=== PATIENT | male | born 1985 | race Caucasian/White ===

== ENCOUNTER 2017-08-05 11:41 | Inpatient (IN) | payer OTHER ==
[2017-08-05] MEDS: SOD CHLORIDE 0.9% 500 ML IV (12:59)
[2017-08-05] MEDS: morphine 2 MG INJ IV ×3 (12:59→21:31)
[2017-08-05] MEDS: PANTOPRAZOLE 40 MG INJ IV (12:59)
[2017-08-05 13:05] LABS: WHITE BLOOD COUNT 42.7 10^3/ul (4.8-10.8)
[2017-08-05 13:05] LABS: ABNORMAL IP MESSAGE 1; HEMATOCRIT 25.7 % (42.0-52.0); HEMOGLOBIN 8.9 g/dl (14.0-18.0); MEAN CORPUSCULAR HEMOGLOBIN 33.8 pg (29.0-33.0); MEAN CORPUSCULAR HGB CONC 34.6 g/dl (32.0-37.0); MEAN CORPUSCULAR VOLUME 97.7 fl (82.0-101.0); MEAN PLATELET VOLUME 10.9 fl (7.4-10.4); PLATELET COUNT 185 10^3/UL (140-415); POSITIVE DIFF @See below; RED BLOOD COUNT 2.63 10^6/ul (4.70-6.10); RED CELL DISTRIBUTION WIDTH 18.5 % (11.5-14.5)
[2017-08-05 13:07] LABS: ADD MAN DIFF? YES
[2017-08-05] MEDS: DEXTROSE 5% IVPB (13:22)
[2017-08-05] MEDS: ONDANSETRON 4 MG INJ IV (13:22)
[2017-08-05] MEDS: OCTREOTIDE IVPB (13:22)
[2017-08-05 13:33] LABS: INR 1.57; PROTIME 19.1 Sec (11.9-14.9); PT RATIO 1.5
[2017-08-05 13:34] LABS: PARTIAL THROMBOPLASTIN TIME 48.3 Sec (25.0-35.0)
[2017-08-05 13:36] LABS: ALANINE AMINOTRANSFERASE 48 IU/L (13-69); ALBUMIN 2.4 g/dl (3.3-4.9); ALBUMIN/GLOBULIN RATIO 0.68; ALKALINE PHOSPHATASE 350 IU/L (42-121); ANION GAP 13 (8-16); ASPARTATE AMINO TRANSFERASE 48 IU/L (15-46); BILIRUBIN,INDIRECT 2.7 mg/dl (0-1.1); BILIRUBIN,TOTAL 14.4 mg/dl (0.2-1.3); BLOOD UREA NITROGEN 8 mg/dl (7-20); CARBON DIOXIDE 16 mmol/L (21-31); CHLORIDE 100 mmol/L (97-110); GLUCOSE 99 mg/dl (70-220); LIPASE 124 U/L (23-300); POTASSIUM 3.4 mmol/L (3.5-5.1); SODIUM 126 mmol/L (135-144); TOTAL PROTEIN 5.9 g/dl (6.1-8.1)
[2017-08-05 13:38] LABS: AMMONIA 56 umol/l (9-30)
[2017-08-05 13:51] LABS: TROPONIN-I < 0.012 ng/ml (0.00-0.12)
[2017-08-05] MEDS: LACTULOSE 30ML CUP PO ×2 (15:08→20:56)
[2017-08-05] MEDS ORDERED: DOCUSATE SODIUM 100 MG CAP PO (15:30)
[2017-08-05] MEDS ORDERED: LORAZEPAM 2 MG INJ IV (15:30)
[2017-08-05] MEDS ORDERED: NITROGLYCERIN (SL) 0.4 MG TAB SL (15:30)
[2017-08-05] MEDS ORDERED: NA PHOSPHATE/BIPHOS 133 ML ENEMA PR (15:30)
[2017-08-05] MEDS ORDERED: hydrALAzine 20 MG INJ IV (15:30)
[2017-08-05] MEDS ORDERED: ACETAMINOPHEN 325 MG TAB PO (15:30)
[2017-08-05] MEDS ORDERED: NACL 0.9% 3 ML SYG IV (15:30)
[2017-08-05] MEDS ORDERED: ALBUTEROL/IPRATROPIUM (NEB) 3 ML AMP HHN (15:30)
[2017-08-05] MEDS: HYDROCODONE/APAP (5/325) TAB PO ×2 (15:48→22:48)
[2017-08-05] MEDS: OCTREOTIDE 1 MG in DEXTROSE 5% 95 ML IV (16:17)
[2017-08-05] MEDS: PANTOPRAZOLE IV 80 MG in SOD CHLORIDE 0.9% 100 ML IV (16:17)
[2017-08-05 16:53] LABS: INR 1.69; PROTIME 20.2 Sec (11.9-14.9); PT RATIO 1.6
[2017-08-05 16:54] LABS: PARTIAL THROMBOPLASTIN TIME 50.2 Sec (25.0-35.0)
[2017-08-05 16:55] LABS: ADD UMIC YES; UR ASCORBIC ACID 40 mg/dL (NEGATIVE); UR BACTERIA FEW /HPF (NONE SEEN); UR BILIRUBIN (Dip) 2+ mg/dL (NEGATIVE); UR BLOOD (Dip) 2+ mg/dL (NEGATIVE); UR CLARITY CLEAR (CLEAR); UR COLOR AMBER (YELLOW); UR GLUCOSE (Dip) NEGATIVE (NEGATIVE); UR KETONES (Dip) NEGATIVE (NEGATIVE); UR LEUKOCYTE ESTERASE (Dip) NEGATIVE Leu/ul (NEGATIVE); UR MUCUS MANY /HPF (NONE SEEN); UR NITRITE (Dip) NEGATIVE (NEGATIVE); UR RBC 0 /HPF (0-5); UR SQUAMOUS EPITHELIAL CELL FEW /HPF (FEW); UR TOTAL PROTEIN (Dip) 1+ mg/dl (NEGATIVE); UR UROBILINOGEN (Dip) 2+ mg/dL (NEGATIVE); UR WBC 2 /HPF (0-5)
[2017-08-05] MEDS ORDERED: LACTULOSE 30ML CUP PO (18:00)
[2017-08-05] MEDS: SOD CHLORIDE 0.45% 1,000 ML IV (19:55)
[2017-08-06] MEDS: PANTOPRAZOLE IV 80 MG in SOD CHLORIDE 0.9% 100 ML IV ×2 (02:53→11:27)
[2017-08-06] MEDS: morphine 2 MG INJ IV ×3 (03:18→17:53)
[2017-08-06] MEDS: SOD CHLORIDE 0.45% 1,000 ML IV ×2 (04:44→10:17)
[2017-08-06] MEDS: FUROSEMIDE 20 MG TAB PO (09:00)
[2017-08-06 09:40] LABS: FREE T4 (FREE THYROXINE) 1.67 ng/dl (0.79-2.35)
[2017-08-06 09:46] LABS: WHITE BLOOD COUNT 37.7 10^3/ul (4.8-10.8)
[2017-08-06 09:46] LABS: ABNORMAL IP MESSAGE 1; HEMATOCRIT 26.2 % (42.0-52.0); HEMOGLOBIN 8.7 g/dl (14.0-18.0); MEAN CORPUSCULAR HEMOGLOBIN 33.6 pg (29.0-33.0); MEAN CORPUSCULAR HGB CONC 33.2 g/dl (32.0-37.0); MEAN CORPUSCULAR VOLUME 101.2 fl (82.0-101.0); MEAN PLATELET VOLUME 10.9 fl (7.4-10.4); PLATELET COUNT 179 10^3/UL (140-415); POSITIVE DIFF @See below; RED BLOOD COUNT 2.59 10^6/ul (4.70-6.10); RED CELL DISTRIBUTION WIDTH 18.2 % (11.5-14.5)
[2017-08-06] MEDS: LACTULOSE 30ML CUP PO ×3 (09:49→20:51)
[2017-08-06 09:52] LABS: ADD MAN DIFF? YES
[2017-08-06 10:06] LABS: HEMOGLOBIN A1C 4.3 % (0-5.9)
[2017-08-06 10:13] LABS: AMMONIA 120 umol/l (9-30)
[2017-08-06 10:30] LABS: ANION GAP 15 (8-16); BLOOD UREA NITROGEN 8 mg/dl (7-20); CALCIUM 7.9 mg/dl (8.4-10.2); CARBON DIOXIDE 14 mmol/L (21-31); CHLORIDE 103 mmol/L (97-110); CREATININE 0.57 mg/dl (0.61-1.24); GLUCOSE 112 mg/dl (70-220); MAGNESIUM 1.8 mg/dl (1.7-2.5); PHOSPHORUS 3.1 mg/dl (2.5-4.9); POTASSIUM 3.6 mmol/L (3.5-5.1); SODIUM 128 mmol/L (135-144)
[2017-08-06 10:35] LABS: ANISOCYTOSIS 2+ (0-0); BAND NEUTROPHILS #M 5.9 10^3/ul (0.0-0.6); BAND NEUTROPHILS % (M) 14 % (0-4); BURR CELLS 3+ (0-0); EOSINOPHILS % (M) 2 % (0-7); LYMPHOCYTES #M 2.9 10^3/ul (0.8-2.9); LYMPHOCYTES % (M) 7 % (15-51); METAMYELOCYTES #M 0.4 10^3/ul (0.0-0.0); METAMYELOCYTES %M 1 % (0-0); MONOCYTE #M 1.2 10^3/ul (0.3-0.9); MONOCYTES % (M) 3 % (0-11); PLATELET ESTIMATE NORMAL; POIKILOCYTOSIS 3+ (0-0); POLYCHROMASIA 1+ (0-0); SEG NEUT #M 33.7 10^3/ul (1.7-7.5); SEGMENTED NEUTROPHILS (M) % 73 % (39-77)
[2017-08-06 10:40] LABS: CHOL/HDL RATIO 6.3 RATIO; HDL CHOLESTEROL 25 mg/dl (28-63); LDL CHOLESTEROL,CALCULATED 92 mg/dl; TRIGLYCERIDES 207 mg/dl (0-149)
[2017-08-06 10:40] LABS: CHOLESTEROL 158 mg/dl (100-200)
[2017-08-06 11:00] LABS: ANISOCYTOSIS 2+ (0-0); BAND NEUTROPHILS #M 1.5 10^3/ul (0.0-0.6); BAND NEUTROPHILS % (M) 4 % (0-4); BASOPHIL #M 0.3 10^3/ul (0.0-0.0); BASOPHILS % (M) 1 % (0-2); EOSINOPHILS % (M) 5 % (0-7); LYMPHOCYTES #M 3.3 10^3/ul (0.8-2.9); LYMPHOCYTES % (M) 9 % (15-51); METAMYELOCYTES #M 0.3 10^3/ul (0.0-0.0); METAMYELOCYTES %M 1 % (0-0); MONOCYTE #M 0.7 10^3/ul (0.3-0.9); MONOCYTES % (M) 2 % (0-11); MYELOCYTES #M 0.7 10^3/ul (0.0-0.0); MYELOCYTES % (M) 2 % (0-0); PLATELET ESTIMATE NORMAL; POIKILOCYTOSIS 3+ (0-0); POLYCHROMASIA 3+ (0-0); SEG NEUT #M 29.6 10^3/ul (1.7-7.5); SEGMENTED NEUTROPHILS (M) % 77 % (39-77); SMUDGE%M 1 % (0-0)
[2017-08-06 11:10] LABS: THYROID STIMULATING HORMONE 0.299 MIU/L (0.465-4.680)
[2017-08-06] MEDS: OCTREOTIDE 1 MG in DEXTROSE 5% 95 ML IV (11:27)
[2017-08-06] MEDS: HYDROCODONE/APAP (5/325) TAB PO (12:56)
[2017-08-06] MEDS: PROPOFOL 20 ML (15:44)
[2017-08-06] MEDS: FENTAnyl 50 MCG/ML VIAL (15:44)
[2017-08-06] MEDS: MIDAZOLAM 1 MG/ML 2 ML INJ (15:44)
[2017-08-06] MEDS ORDERED: EPHEDrine SULFATE 50 MG/5 ML SYG (16:21)
[2017-08-06] MEDS: FLUCONAZOLE 100 MG TAB PO (17:52)
[2017-08-06] MEDS: CHLORDIAZEPOXIDE 25 MG CAP PO (21:35)
[2017-08-07] MEDS: morphine 2 MG INJ IV ×3 (00:36→17:43)
[2017-08-07] MEDS: PANTOPRAZOLE IV 80 MG in SOD CHLORIDE 0.9% 100 ML IV ×3 (00:48→15:43)
[2017-08-07] MEDS: SOD CHLORIDE 0.45% 1,000 ML IV ×3 (04:37→21:17)
[2017-08-07 08:48] LABS: WHITE BLOOD COUNT 29.1 10^3/ul (4.8-10.8)
[2017-08-07 08:48] LABS: ABNORMAL IP MESSAGE 1; HEMATOCRIT 23.8 % (42.0-52.0); HEMOGLOBIN 7.9 g/dl (14.0-18.0); MEAN CORPUSCULAR HEMOGLOBIN 33.5 pg (29.0-33.0); MEAN CORPUSCULAR HGB CONC 33.2 g/dl (32.0-37.0); MEAN CORPUSCULAR VOLUME 100.8 fl (82.0-101.0); MEAN PLATELET VOLUME 10.5 fl (7.4-10.4); PLATELET COUNT 153 10^3/UL (140-415); POSITIVE DIFF @See below; RED BLOOD COUNT 2.36 10^6/ul (4.70-6.10); RED CELL DISTRIBUTION WIDTH 18.2 % (11.5-14.5)
[2017-08-07 08:53] LABS: ADD MAN DIFF? YES
[2017-08-07 09:13] LABS: ANION GAP 12 (8-16); BLOOD UREA NITROGEN 7 mg/dl (7-20); CALCIUM 7.9 mg/dl (8.4-10.2); CARBON DIOXIDE 13 mmol/L (21-31); CHLORIDE 103 mmol/L (97-110); CREATININE 0.54 mg/dl (0.61-1.24); GLUCOSE 113 mg/dl (70-220); POTASSIUM 3.2 mmol/L (3.5-5.1); SODIUM 125 mmol/L (135-144)
[2017-08-07 09:17] LABS: AMMONIA 92 umol/l (9-30)
[2017-08-07] MEDS: FLUCONAZOLE 100 MG TAB PO (09:59)
[2017-08-07] MEDS: CHLORDIAZEPOXIDE 25 MG CAP PO ×3 (09:59→21:07)
[2017-08-07] MEDS: LACTULOSE 30ML CUP PO ×4 (10:00→21:07)
[2017-08-07] MEDS: FUROSEMIDE 20 MG TAB PO (10:01)
[2017-08-07 10:42] LABS: ANISOCYTOSIS 2+ (0-0); BAND NEUTROPHILS #M 0.2 10^3/ul (0.0-0.6); BAND NEUTROPHILS % (M) 1 % (0-4); EOSINOPHILS % (M) 5 % (0-7); LYMPHOCYTES #M 1.4 10^3/ul (0.8-2.9); LYMPHOCYTES % (M) 5 % (15-51); MONOCYTE #M 0.5 10^3/ul (0.3-0.9); MONOCYTES % (M) 2 % (0-11); PLATELET ESTIMATE NORMAL; POIKILOCYTOSIS 3+ (0-0); POLYCHROMASIA 3+ (0-0); SEG NEUT #M 25.4 10^3/ul (1.7-7.5); SEGMENTED NEUTROPHILS (M) % 87 % (39-77); SMUDGE%M 4 % (0-0)
[2017-08-07] MEDS: POTASSIUM CHLORIDE (SR) 20 MEQ TAB PO (13:31)
[2017-08-07] MEDS: RIFAXIMIN 550 MG TAB PO (21:07)
[2017-08-08] MEDS: morphine 2 MG INJ IV ×2 (02:33→18:48)
[2017-08-08] MEDS: PANTOPRAZOLE IV 80 MG in SOD CHLORIDE 0.9% 100 ML IV (02:43)
[2017-08-08 08:46] LABS: WHITE BLOOD COUNT 33.4 10^3/ul (4.8-10.8)
[2017-08-08 08:46] LABS: ABNORMAL IP MESSAGE 1; HEMATOCRIT 24.8 % (42.0-52.0); HEMOGLOBIN 8.4 g/dl (14.0-18.0); MEAN CORPUSCULAR HEMOGLOBIN 33.7 pg (29.0-33.0); MEAN CORPUSCULAR HGB CONC 33.9 g/dl (32.0-37.0); MEAN CORPUSCULAR VOLUME 99.6 fl (82.0-101.0); PLATELET COUNT 171 10^3/UL (140-415); POSITIVE DIFF @See below; RED BLOOD COUNT 2.49 10^6/ul (4.70-6.10); RED CELL DISTRIBUTION WIDTH 18.1 % (11.5-14.5)
[2017-08-08 08:53] LABS: ADD MAN DIFF? YES
[2017-08-08] MEDS: FUROSEMIDE 20 MG TAB PO (09:00)
[2017-08-08 09:09] LABS: ANION GAP 12 (8-16); BLOOD UREA NITROGEN 6 mg/dl (7-20); CALCIUM 7.8 mg/dl (8.4-10.2); CARBON DIOXIDE 14 mmol/L (21-31); CHLORIDE 107 mmol/L (97-110); CREATININE 0.58 mg/dl (0.61-1.24); GLUCOSE 67 mg/dl (70-220); POTASSIUM 3.5 mmol/L (3.5-5.1); SODIUM 129 mmol/L (135-144)
[2017-08-08 09:17] LABS: AMMONIA 91 umol/l (9-30)
[2017-08-08] MEDS: SPIRONOLACTONE 50 MG TAB PO (09:32)
[2017-08-08] MEDS: LACTULOSE 30ML CUP PO ×4 (09:32→21:07)
[2017-08-08] MEDS: FLUCONAZOLE 100 MG TAB PO (09:32)
[2017-08-08] MEDS: CHLORDIAZEPOXIDE 25 MG CAP PO ×3 (09:32→21:07)
[2017-08-08] MEDS: RIFAXIMIN 550 MG TAB PO ×2 (09:32→21:07)
[2017-08-08] MEDS: SOD CHLORIDE 0.45% 1,000 ML IV (09:33)
[2017-08-08 11:13] LABS: ANISOCYTOSIS 2+ (0-0); BAND NEUTROPHILS #M 4.6 10^3/ul (0.0-0.6); BAND NEUTROPHILS % (M) 14 % (0-4); BURR CELLS 2+ (0-0); EOSINOPHILS % (M) 4 % (0-7); LYMPHOCYTES #M 1.6 10^3/ul (0.8-2.9); LYMPHOCYTES % (M) 5 % (15-51); MONOCYTE #M 1.3 10^3/ul (0.3-0.9); MONOCYTES % (M) 4 % (0-11); PLATELET ESTIMATE NORMAL; POIKILOCYTOSIS 2+ (0-0); POLYCHROMASIA 3+ (0-0); REACTIVE LYMPHOCYTES #M 1.6 10^3/ul (0.0-0.0); REACTIVE LYMPHOCYTES% (M) 5 % (0-0); SEG NEUT #M 24.2 10^3/ul (1.7-7.5); SEGMENTED NEUTROPHILS (M) % 68 % (39-77); SMUDGE%M 10 % (0-0)
[2017-08-08] MEDS: PANTOPRAZOLE (EC) 40 MG TAB PO (17:48)
[2017-08-09] MEDS: PANTOPRAZOLE (EC) 40 MG TAB PO ×2 (05:57→18:03)
[2017-08-09] MEDS: morphine 2 MG INJ IV ×3 (06:24→20:23)
[2017-08-09 06:46] LABS: ABNORMAL IP MESSAGE 1; HEMOGLOBIN 7.8 g/dl (14.0-18.0); MEAN CORPUSCULAR HEMOGLOBIN 33.9 pg (29.0-33.0); MEAN CORPUSCULAR HGB CONC 33.9 g/dl (32.0-37.0); MEAN PLATELET VOLUME 10.9 fl (7.4-10.4); PLATELET COUNT 157 10^3/UL (140-415); POSITIVE DIFF @See below; RED CELL DISTRIBUTION WIDTH 18.6 % (11.5-14.5)
[2017-08-09 06:46] LABS: WHITE BLOOD COUNT 30.5 10^3/ul (4.8-10.8)
[2017-08-09 07:08] LABS: ANION GAP 11 (8-16); BLOOD UREA NITROGEN 6 mg/dl (7-20); CALCIUM 7.7 mg/dl (8.4-10.2); CARBON DIOXIDE 14 mmol/L (21-31); CHLORIDE 110 mmol/L (97-110); CREATININE 0.54 mg/dl (0.61-1.24); GLUCOSE 72 mg/dl (70-220); POTASSIUM 3.3 mmol/L (3.5-5.1); SODIUM 132 mmol/L (135-144)
[2017-08-09 07:09] LABS: ADD MAN DIFF? YES
[2017-08-09 08:43] LABS: ANISOCYTOSIS 2+ (0-0); BAND NEUTROPHILS #M 2.7 10^3/ul (0.0-0.6); BAND NEUTROPHILS % (M) 9 % (0-4); BASOPHIL #M 0.3 10^3/ul (0.0-0.0); BASOPHILS % (M) 1 % (0-2); EOSINOPHILS % (M) 3 % (0-7); LYMPHOCYTES #M 1.8 10^3/ul (0.8-2.9); LYMPHOCYTES % (M) 6 % (15-51); MICROCYTOSIS 1+ (0-0); MONOCYTE #M 0.3 10^3/ul (0.3-0.9); MONOCYTES % (M) 1 % (0-11); PLATELET ESTIMATE NORMAL; POIKILOCYTOSIS 3+ (0-0); POLYCHROMASIA 1+ (0-0); SEG NEUT #M 25.2 10^3/ul (1.7-7.5); SEGMENTED NEUTROPHILS (M) % 80 % (39-77); SMUDGE%M 5 % (0-0)
[2017-08-09] MEDS: LACTULOSE 30ML CUP PO ×4 (08:55→20:21)
[2017-08-09] MEDS: CHLORDIAZEPOXIDE 25 MG CAP PO ×2 (08:56→20:22)
[2017-08-09] MEDS: SPIRONOLACTONE 50 MG TAB PO (08:56)
[2017-08-09] MEDS: FLUCONAZOLE 100 MG TAB PO (08:56)
[2017-08-09] MEDS: RIFAXIMIN 550 MG TAB PO ×2 (08:56→20:22)
[2017-08-09] MEDS: FUROSEMIDE 20 MG TAB PO (08:56)
[2017-08-09 11:50] LABS: AMMONIA 98 umol/l (9-30)
[2017-08-10] MEDS: morphine 2 MG INJ IV ×3 (04:02→23:21)
[2017-08-10 06:38] LABS: ABNORMAL IP MESSAGE 1; HEMOGLOBIN 7.9 g/dl (14.0-18.0); MEAN CORPUSCULAR HEMOGLOBIN 34.5 pg (29.0-33.0); MEAN CORPUSCULAR HGB CONC 34.3 g/dl (32.0-37.0); MEAN CORPUSCULAR VOLUME 100.4 fl (82.0-101.0); MEAN PLATELET VOLUME 11.2 fl (7.4-10.4); PLATELET COUNT 162 10^3/UL (140-415); POSITIVE DIFF @See below; RED BLOOD COUNT 2.29 10^6/ul (4.70-6.10); RED CELL DISTRIBUTION WIDTH 18.8 % (11.5-14.5)
[2017-08-10 06:38] LABS: WHITE BLOOD COUNT 31.4 10^3/ul (4.8-10.8)
[2017-08-10] MEDS: PANTOPRAZOLE (EC) 40 MG TAB PO ×2 (06:53→17:40)
[2017-08-10 06:59] LABS: ADD MAN DIFF? YES
[2017-08-10 07:13] LABS: AMMONIA 79 umol/l (9-30)
[2017-08-10] MEDS: SPIRONOLACTONE 50 MG TAB PO (08:34)
[2017-08-10] MEDS: RIFAXIMIN 550 MG TAB PO ×2 (08:34→21:40)
[2017-08-10] MEDS: FLUCONAZOLE 100 MG TAB PO (08:34)
[2017-08-10] MEDS: CHLORDIAZEPOXIDE 25 MG CAP PO (08:34)
[2017-08-10] MEDS: FUROSEMIDE 20 MG TAB PO (08:35)
[2017-08-10] MEDS: LACTULOSE 30ML CUP PO ×4 (08:35→21:00)
[2017-08-10 09:27] LABS: ANION GAP 13 (8-16); BLOOD UREA NITROGEN 6 mg/dl (7-20); CALCIUM 7.6 mg/dl (8.4-10.2); CARBON DIOXIDE 15 mmol/L (21-31); CHLORIDE 108 mmol/L (97-110); CREATININE 0.51 mg/dl (0.61-1.24); GLUCOSE 115 mg/dl (70-220); SODIUM 132 mmol/L (135-144)
[2017-08-10] MEDS: FLUCONAZOLE 200 MG TAB PO (19:44)
[2017-08-10] MEDS: BARIUM SULF 2% 450 ML BTL (BERRY SMOOTHIE) PO (21:40)
[2017-08-11] MEDS: IOHEXOL 300MG/ML 150 ML BTL (01:50)
[2017-08-11] MEDS: SOD CHLORIDE 0.9% 100 ML (01:50)
[2017-08-11] MEDS: PANTOPRAZOLE (EC) 40 MG TAB PO ×2 (05:48→17:10)
[2017-08-11] MEDS: morphine 2 MG INJ IV ×2 (05:48→13:03)
[2017-08-11 06:33] LABS: ABNORMAL IP MESSAGE 1; HEMATOCRIT 24.2 % (42.0-52.0); HEMOGLOBIN 8.2 g/dl (14.0-18.0); MEAN CORPUSCULAR HGB CONC 33.9 g/dl (32.0-37.0); MEAN CORPUSCULAR VOLUME 100.4 fl (82.0-101.0); MEAN PLATELET VOLUME 11.3 fl (7.4-10.4); PLATELET COUNT 166 10^3/UL (140-415); POSITIVE DIFF @See below; RED BLOOD COUNT 2.41 10^6/ul (4.70-6.10); RED CELL DISTRIBUTION WIDTH 18.7 % (11.5-14.5)
[2017-08-11 06:33] LABS: WHITE BLOOD COUNT 38.5 10^3/ul (4.8-10.8)
[2017-08-11 06:37] LABS: ADD MAN DIFF? YES
[2017-08-11 07:01] LABS: ANION GAP 13 (8-16); BLOOD UREA NITROGEN 7 mg/dl (7-20); CALCIUM 7.7 mg/dl (8.4-10.2); CARBON DIOXIDE 14 mmol/L (21-31); CHLORIDE 108 mmol/L (97-110); CREATININE 0.57 mg/dl (0.61-1.24); GLUCOSE 84 mg/dl (70-220); POTASSIUM 4.2 mmol/L (3.5-5.1); SODIUM 131 mmol/L (135-144)
[2017-08-11 07:13] LABS: AMMONIA 61 umol/l (9-30)
[2017-08-11 08:07] LABS: ANISOCYTOSIS 2+ (0-0); BAND NEUTROPHILS #M 6.9 10^3/ul (0.0-0.6); BAND NEUTROPHILS % (M) 18 % (0-4); BASOPHIL #M 0.3 10^3/ul (0.0-0.0); BASOPHILS % (M) 1 % (0-2); BURR CELLS 3+ (0-0); EOSINOPHILS % (M) 2 % (0-7); LYMPHOCYTES #M 2.3 10^3/ul (0.8-2.9); LYMPHOCYTES % (M) 6 % (15-51); MONOCYTE #M 2.3 10^3/ul (0.3-0.9); MONOCYTES % (M) 6 % (0-11); PLATELET ESTIMATE NORMAL; POIKILOCYTOSIS 3+ (0-0); SEG NEUT #M 28.5 10^3/ul (1.7-7.5); SEGMENTED NEUTROPHILS (M) % 67 % (39-77); SMUDGE%M 1 % (0-0)
[2017-08-11] MEDS: LIDOCAINE 1% (MPF) 5 ML VIAL (08:28)
[2017-08-11 09:19] LABS: FLD MN% 80.1 %; FLD PMN% 19.9 %; FLD RBC 0 /uL; FLD WBC 583 /cmm
[2017-08-11 09:41] LABS: FLD TYPE ASCITES
[2017-08-11 09:41] LABS: FLD CLARITY CLEAR; FLD COLOR YELLOW
[2017-08-11 09:44] LABS: ALBUMIN < 1.0 g/dl (3.3-4.9)
[2017-08-11] MEDS: LACTULOSE 30ML CUP PO ×4 (09:56→21:22)
[2017-08-11] MEDS: FUROSEMIDE 20 MG TAB PO (09:56)
[2017-08-11] MEDS: RIFAXIMIN 550 MG TAB PO ×2 (09:56→21:22)
[2017-08-11] MEDS: SPIRONOLACTONE 50 MG TAB PO ×2 (09:57→21:22)
[2017-08-11] MEDS: FLUCONAZOLE 200 MG TAB PO (09:58)
[2017-08-11 10:08] LABS: FLUID LD < 100 U/L; FLUID TOTAL PROTEIN < 2.0 g/dl; FLUID TYPE ASCITIES FLUID
[2017-08-11] MEDS: SUCRALFATE (100 MG/ML) 10ML CUP PO ×2 (17:10→21:21)
[2017-08-12] MEDS: PANTOPRAZOLE (EC) 40 MG TAB PO ×2 (05:50→17:39)
[2017-08-12 06:28] LABS: WHITE BLOOD COUNT 32.8 10^3/ul (4.8-10.8)
[2017-08-12 06:28] LABS: ABNORMAL IP MESSAGE 1; HEMATOCRIT 24.3 % (42.0-52.0); HEMOGLOBIN 8.3 g/dl (14.0-18.0); MEAN CORPUSCULAR HEMOGLOBIN 34.3 pg (29.0-33.0); MEAN CORPUSCULAR HGB CONC 34.2 g/dl (32.0-37.0); MEAN CORPUSCULAR VOLUME 100.4 fl (82.0-101.0); MEAN PLATELET VOLUME 11.3 fl (7.4-10.4); PLATELET COUNT 165 10^3/UL (140-415); POSITIVE DIFF @See below; RED BLOOD COUNT 2.42 10^6/ul (4.70-6.10); RED CELL DISTRIBUTION WIDTH 18.7 % (11.5-14.5)
[2017-08-12 06:42] LABS: ADD MAN DIFF? YES
[2017-08-12 07:09] LABS: AMMONIA 45 umol/l (9-30)
[2017-08-12 07:13] LABS: ANION GAP 13 (8-16); BLOOD UREA NITROGEN 7 mg/dl (7-20); CALCIUM 7.7 mg/dl (8.4-10.2); CARBON DIOXIDE 14 mmol/L (21-31); CHLORIDE 110 mmol/L (97-110); CREATININE 0.59 mg/dl (0.61-1.24); GLUCOSE 89 mg/dl (70-220); POTASSIUM 3.8 mmol/L (3.5-5.1); SODIUM 133 mmol/L (135-144)
[2017-08-12] MEDS: SUCRALFATE (100 MG/ML) 10ML CUP PO ×4 (09:17→20:26)
[2017-08-12] MEDS: FLUCONAZOLE 200 MG TAB PO (09:17)
[2017-08-12] MEDS: SPIRONOLACTONE 50 MG TAB PO ×2 (09:17→20:31)
[2017-08-12] MEDS: FUROSEMIDE 20 MG TAB PO (09:17)
[2017-08-12] MEDS: RIFAXIMIN 550 MG TAB PO ×2 (09:17→20:26)
[2017-08-12] MEDS: LACTULOSE 30ML CUP PO ×4 (09:18→20:26)
[2017-08-12 09:42] LABS: ANISOCYTOSIS 2+ (0-0); BAND NEUTROPHILS #M 5.9 10^3/ul (0.0-0.6); BAND NEUTROPHILS % (M) 18 % (0-4); BASOPHIL #M 0.3 10^3/ul (0.0-0.0); BASOPHILS % (M) 1 % (0-2); BURR CELLS 3+ (0-0); EOSINOPHILS % (M) 2 % (0-7); GIANT THROMBO% (M) 1 % (0-0); LYMPHOCYTES #M 3.2 10^3/ul (0.8-2.9); LYMPHOCYTES % (M) 10 % (15-51); METAMYELOCYTES #M 0.3 10^3/ul (0.0-0.0); METAMYELOCYTES %M 1 % (0-0); PLATELET ESTIMATE NORMAL; POIKILOCYTOSIS 3+ (0-0); POLYCHROMASIA 2+ (0-0); PROMYELOCYTES #M 0.3 10^3/ul (0-0); PROMYELOCYTES % (M) 1 % (0-0); SEG NEUT #M 23.9 10^3/ul (1.7-7.5); SEGMENTED NEUTROPHILS (M) % 67 % (39-77)
[2017-08-12] MEDS: morphine 2 MG INJ IV (11:12)
[2017-08-12 17:59] LABS: ADD UMIC NO; UR ASCORBIC ACID NEGATIVE (NEGATIVE); UR BACTERIA FEW /HPF (NONE SEEN); UR BILIRUBIN (Dip) 2+ mg/dL (NEGATIVE); UR BLOOD (Dip) NEGATIVE (NEGATIVE); UR CLARITY SLIGHTLY CLOUDY (CLEAR); UR COLOR AMBER (YELLOW); UR GLUCOSE (Dip) NEGATIVE (NEGATIVE); UR KETONES (Dip) NEGATIVE (NEGATIVE); UR LEUKOCYTE ESTERASE (Dip) NEGATIVE Leu/ul (NEGATIVE); UR MUCUS FEW /HPF (NONE SEEN); UR NITRITE (Dip) NEGATIVE (NEGATIVE); UR RBC 0 /HPF (0-5); UR SPECIFIC GRAVITY (Dip) 1.014 (1.003-1.030); UR SQUAMOUS EPITHELIAL CELL FEW /HPF (FEW); UR TOTAL PROTEIN (Dip) NEGATIVE (NEGATIVE); UR UROBILINOGEN (Dip) 2+ mg/dL (NEGATIVE); UR WBC 2 /HPF (0-5)
[2017-08-13] MEDS ORDERED: VANCOMYCIN IV PER PHARMACY XX (03:30)
[2017-08-13] MEDS: VANCOMYCIN 1.5 GM in DEXTROSE 5% 500 ML IVPB (04:48)
[2017-08-13] MEDS: PANTOPRAZOLE (EC) 40 MG TAB PO ×2 (05:51→18:01)
[2017-08-13 06:32] LABS: ABNORMAL IP MESSAGE 1; HEMATOCRIT 22.2 % (42.0-52.0); HEMOGLOBIN 7.5 g/dl (14.0-18.0); MEAN CORPUSCULAR HEMOGLOBIN 34.4 pg (29.0-33.0); MEAN CORPUSCULAR HGB CONC 33.8 g/dl (32.0-37.0); MEAN CORPUSCULAR VOLUME 101.8 fl (82.0-101.0); MEAN PLATELET VOLUME 11.4 fl (7.4-10.4); PLATELET COUNT 161 10^3/UL (140-415); POSITIVE DIFF @See below; RED BLOOD COUNT 2.18 10^6/ul (4.70-6.10); RED CELL DISTRIBUTION WIDTH 18.9 % (11.5-14.5)
[2017-08-13 06:35] LABS: ADD MAN DIFF? YES
[2017-08-13 07:05] LABS: ALANINE AMINOTRANSFERASE 27 IU/L (13-69); ALBUMIN 1.8 g/dl (3.3-4.9); ALKALINE PHOSPHATASE 239 IU/L (42-121); ANION GAP 14 (8-16); ASPARTATE AMINO TRANSFERASE 30 IU/L (15-46); BILIRUBIN,INDIRECT 2.2 mg/dl (0-1.1); BILIRUBIN,TOTAL 9.6 mg/dl (0.2-1.3); BLOOD UREA NITROGEN 6 mg/dl (7-20); CALCIUM 7.2 mg/dl (8.4-10.2); CARBON DIOXIDE 13 mmol/L (21-31); CHLORIDE 108 mmol/L (97-110); CREATININE 0.57 mg/dl (0.61-1.24); GLUCOSE 132 mg/dl (70-220); POTASSIUM 3.3 mmol/L (3.5-5.1); SODIUM 132 mmol/L (135-144); TOTAL PROTEIN 4.8 g/dl (6.1-8.1)
[2017-08-13] MEDS: morphine 2 MG INJ IV ×3 (08:24→21:18)
[2017-08-13] MEDS: FLUCONAZOLE 200 MG TAB PO (08:26)
[2017-08-13] MEDS: SPIRONOLACTONE 50 MG TAB PO ×2 (08:26→21:01)
[2017-08-13] MEDS: RIFAXIMIN 550 MG TAB PO ×2 (08:26→21:01)
[2017-08-13] MEDS: LACTULOSE 30ML CUP PO ×4 (08:26→21:02)
[2017-08-13] MEDS: SUCRALFATE (100 MG/ML) 10ML CUP PO ×4 (08:26→21:01)
[2017-08-13] MEDS: FUROSEMIDE 20 MG TAB PO (08:27)
[2017-08-13 09:46] LABS: ANISOCYTOSIS 2+ (0-0); BAND NEUTROPHILS #M 3.4 10^3/ul (0.0-0.6); BAND NEUTROPHILS % (M) 11 % (0-4); BURR CELLS 3+ (0-0); EOSINOPHILS % (M) 1 % (0-7); LYMPHOCYTES #M 2.7 10^3/ul (0.8-2.9); LYMPHOCYTES % (M) 9 % (15-51); MICROCYTOSIS 1+ (0-0); MONOCYTE #M 1.5 10^3/ul (0.3-0.9); MONOCYTES % (M) 5 % (0-11); PLATELET ESTIMATE NORMAL; POIKILOCYTOSIS 3+ (0-0); POLYCHROMASIA 1+ (0-0); SEGMENTED NEUTROPHILS (M) % 74 % (39-77)
[2017-08-13] MEDS: VANCOMYCIN 1.25 GM in SODIUM CHLORIDE 0.45 % 250 ML IVPB ×2 (12:02→20:59)
[2017-08-13] MEDS ORDERED: VANCOMYCIN 1.25 GM in SODIUM CHLORIDE 0.45 % 250 ML IVPB (16:00)
[2017-08-13] MEDS: POTASSIUM CHLORIDE (SR) 20 MEQ TAB PO (16:27)
[2017-08-14 05:13] LABS: VANCOMYCIN,TROUGH 26.8 ug/ml (10.0-20.0)
[2017-08-14] MEDS: PANTOPRAZOLE (EC) 40 MG TAB PO ×2 (05:46→17:56)
[2017-08-14] MEDS: SUCRALFATE (100 MG/ML) 10ML CUP PO ×4 (08:27→20:41)
[2017-08-14] MEDS: LACTULOSE 30ML CUP PO ×4 (08:27→20:49)
[2017-08-14] MEDS: RIFAXIMIN 550 MG TAB PO ×2 (08:28→20:41)
[2017-08-14] MEDS: FLUCONAZOLE 200 MG TAB PO (08:28)
[2017-08-14] MEDS: FUROSEMIDE 20 MG TAB PO (08:29)
[2017-08-14] MEDS: SPIRONOLACTONE 50 MG TAB PO ×2 (08:29→20:41)
[2017-08-14] MEDS: morphine 2 MG INJ IV ×3 (09:43→22:41)
[2017-08-14] MEDS: VANCOMYCIN 1 GM 250 ML IVPB (20:40)
[2017-08-15] MEDS: morphine 2 MG INJ IV ×3 (05:07→20:51)
[2017-08-15] MEDS: PANTOPRAZOLE (EC) 40 MG TAB PO ×2 (05:07→17:32)
[2017-08-15] MEDS: FLUCONAZOLE 200 MG TAB PO (08:23)
[2017-08-15] MEDS: SPIRONOLACTONE 50 MG TAB PO ×2 (08:23→20:49)
[2017-08-15] MEDS: SUCRALFATE (100 MG/ML) 10ML CUP PO ×4 (08:24→20:49)
[2017-08-15] MEDS: LACTULOSE 30ML CUP PO ×4 (08:24→20:49)
[2017-08-15] MEDS: RIFAXIMIN 550 MG TAB PO ×2 (08:24→20:49)
[2017-08-15] MEDS: FUROSEMIDE 20 MG TAB PO (08:24)
[2017-08-15] MEDS: VANCOMYCIN 1 GM 250 ML IVPB ×2 (08:42→20:48)
[2017-08-15 14:55] LABS: WHITE BLOOD COUNT 34.8 10^3/ul (4.8-10.8)
[2017-08-15 14:55] LABS: ABNORMAL IP MESSAGE 1; HEMATOCRIT 24.2 % (42.0-52.0); HEMOGLOBIN 8.3 g/dl (14.0-18.0); MEAN CORPUSCULAR HEMOGLOBIN 34.6 pg (29.0-33.0); MEAN CORPUSCULAR HGB CONC 34.3 g/dl (32.0-37.0); MEAN CORPUSCULAR VOLUME 100.8 fl (82.0-101.0); MEAN PLATELET VOLUME 11.1 fl (7.4-10.4); PLATELET COUNT 184 10^3/UL (140-415); POSITIVE DIFF @See below; RED CELL DISTRIBUTION WIDTH 18.1 % (11.5-14.5)
[2017-08-15 14:56] LABS: ADD MAN DIFF? YES
[2017-08-15 15:27] LABS: ALANINE AMINOTRANSFERASE 28 IU/L (13-69); ALKALINE PHOSPHATASE 283 IU/L (42-121); ANION GAP 14 (8-16); ASPARTATE AMINO TRANSFERASE 30 IU/L (15-46); BILIRUBIN,INDIRECT 1.9 mg/dl (0-1.1); BILIRUBIN,TOTAL 13.9 mg/dl (0.2-1.3); BLOOD UREA NITROGEN 15 mg/dl (7-20); CALCIUM 7.6 mg/dl (8.4-10.2); CARBON DIOXIDE 11 mmol/L (21-31); CHLORIDE 106 mmol/L (97-110); GLUCOSE 102 mg/dl (70-220); MAGNESIUM 1.7 mg/dl (1.7-2.5); POTASSIUM 4.1 mmol/L (3.5-5.1); SODIUM 127 mmol/L (135-144); TOTAL PROTEIN 5.3 g/dl (6.1-8.1)
[2017-08-15 17:49] LABS: ANISOCYTOSIS 2+ (0-0); BAND NEUTROPHILS #M 3.4 10^3/ul (0.0-0.6); BAND NEUTROPHILS % (M) 10 % (0-4); BASOPHIL #M 0.3 10^3/ul (0.0-0.0); BASOPHILS % (M) 1 % (0-2); EOSINOPHILS % (M) 1 % (0-7); LYMPHOCYTES % (M) 6 % (15-51); METAMYELOCYTES #M 0.3 10^3/ul (0.0-0.0); METAMYELOCYTES %M 1 % (0-0); MICROCYTOSIS 1+ (0-0); MONOCYTE #M 1.7 10^3/ul (0.3-0.9); MONOCYTES % (M) 5 % (0-11); PLATELET ESTIMATE NORMAL; POIKILOCYTOSIS 3+ (0-0); POLYCHROMASIA 3+ (0-0); SEG NEUT #M 27.6 10^3/ul (1.7-7.5); SEGMENTED NEUTROPHILS (M) % 76 % (39-77); SMUDGE%M 3 % (0-0)
[2017-08-16] MEDS: PANTOPRAZOLE (EC) 40 MG TAB PO ×2 (05:10→17:23)
[2017-08-16] MEDS: morphine 2 MG INJ IV ×3 (05:10→18:37)
[2017-08-16 07:59] LABS: WHITE BLOOD COUNT 33.6 10^3/ul (4.8-10.8)
[2017-08-16 07:59] LABS: ABNORMAL IP MESSAGE 1; HEMATOCRIT 22.2 % (42.0-52.0); HEMOGLOBIN 7.5 g/dl (14.0-18.0); MEAN CORPUSCULAR HEMOGLOBIN 34.2 pg (29.0-33.0); MEAN CORPUSCULAR HGB CONC 33.8 g/dl (32.0-37.0); MEAN CORPUSCULAR VOLUME 101.4 fl (82.0-101.0); MEAN PLATELET VOLUME 11.2 fl (7.4-10.4); PLATELET COUNT 184 10^3/UL (140-415); POSITIVE DIFF @See below; RED BLOOD COUNT 2.19 10^6/ul (4.70-6.10); RED CELL DISTRIBUTION WIDTH 18.2 % (11.5-14.5)
[2017-08-16] MEDS: VANCOMYCIN 1 GM 250 ML IVPB (08:00)
[2017-08-16 08:03] LABS: ADD MAN DIFF? YES
[2017-08-16 08:23] LABS: ALANINE AMINOTRANSFERASE 27 IU/L (13-69); ALBUMIN 1.8 g/dl (3.3-4.9); ALKALINE PHOSPHATASE 244 IU/L (42-121); ANION GAP 14 (8-16); ASPARTATE AMINO TRANSFERASE 29 IU/L (15-46); BILIRUBIN,INDIRECT 1.7 mg/dl (0-1.1); BILIRUBIN,TOTAL 13.1 mg/dl (0.2-1.3); BLOOD UREA NITROGEN 19 mg/dl (7-20); CALCIUM 7.4 mg/dl (8.4-10.2); CARBON DIOXIDE 12 mmol/L (21-31); CHLORIDE 107 mmol/L (97-110); CREATININE 2.42 mg/dl (0.61-1.24); GLUCOSE 92 mg/dl (70-220); POTASSIUM 4.1 mmol/L (3.5-5.1); SODIUM 129 mmol/L (135-144); TOTAL PROTEIN 4.8 g/dl (6.1-8.1)
[2017-08-16 08:38] LABS: VANCOMYCIN,TROUGH 32.5 ug/ml (10.0-20.0)
[2017-08-16] MEDS: LACTULOSE 30ML CUP PO ×4 (09:00→20:36)
[2017-08-16 09:49] LABS: ANISOCYTOSIS 2+ (0-0); BAND NEUTROPHILS % (M) 9 % (0-4); BURR CELLS 3+ (0-0); EOSINOPHILS % (M) 3 % (0-7); LYMPHOCYTES #M 0.3 10^3/ul (0.8-2.9); LYMPHOCYTES % (M) 1 % (15-51); MICROCYTOSIS 1+ (0-0); MONOCYTE #M 2.6 10^3/ul (0.3-0.9); MONOCYTES % (M) 8 % (0-11); PLATELET ESTIMATE NORMAL; POIKILOCYTOSIS 3+ (0-0); POLYCHROMASIA 1+ (0-0); REACTIVE LYMPHOCYTES #M 1.3 10^3/ul (0.0-0.0); REACTIVE LYMPHOCYTES% (M) 4 % (0-0); SEG NEUT #M 26.2 10^3/ul (1.7-7.5); SEGMENTED NEUTROPHILS (M) % 75 % (39-77); SMUDGE%M 1 % (0-0); SPHEROCYTES 1+ (0-0)
[2017-08-16] MEDS: SUCRALFATE (100 MG/ML) 10ML CUP PO ×4 (09:59→20:35)
[2017-08-16] MEDS: FLUCONAZOLE 200 MG TAB PO (09:59)
[2017-08-16] MEDS: FUROSEMIDE 20 MG TAB PO (10:00)
[2017-08-16] MEDS: SPIRONOLACTONE 50 MG TAB PO (10:00)
[2017-08-16] MEDS: RIFAXIMIN 550 MG TAB PO ×2 (10:05→20:36)
[2017-08-16 13:03] LABS: AMMONIA 56 umol/l (9-30)
[2017-08-16] MEDS: ALBUMIN HUMAN 25% 100 ML IV ×2 (14:00→21:53)
[2017-08-16 15:14] LABS: IMMEDIATE SPIN CROSSMATCH 1 1
[2017-08-16] MEDS: AMPICILLIN/SULB 3 GM/NS (PMX) 100 ML IVPB ×2 (20:39→23:51)
[2017-08-16] MEDS ORDERED: AMOXICILLIN 500 MG CAP PO (22:00)
[2017-08-17] MEDS: PANTOPRAZOLE (EC) 40 MG TAB PO ×2 (05:09→17:27)
[2017-08-17] MEDS: ALBUMIN HUMAN 25% 100 ML IV (05:09)
[2017-08-17] MEDS: AMPICILLIN/SULB 3 GM/NS (PMX) 100 ML IVPB ×4 (06:13→23:57)
[2017-08-17] MEDS: morphine 2 MG INJ IV ×3 (07:59→20:17)
[2017-08-17 08:16] LABS: ABNORMAL IP MESSAGE 1; HEMATOCRIT 22.5 % (42.0-52.0); HEMOGLOBIN 7.6 g/dl (14.0-18.0); MEAN CORPUSCULAR HEMOGLOBIN 33.8 pg (29.0-33.0); MEAN CORPUSCULAR HGB CONC 33.8 g/dl (32.0-37.0); MEAN PLATELET VOLUME 11.2 fl (7.4-10.4); PLATELET COUNT 167 10^3/UL (140-415); POSITIVE DIFF @See below; RED BLOOD COUNT 2.25 10^6/ul (4.70-6.10); RED CELL DISTRIBUTION WIDTH 19.4 % (11.5-14.5)
[2017-08-17 08:16] LABS: WHITE BLOOD COUNT 32.9 10^3/ul (4.8-10.8)
[2017-08-17 08:32] LABS: ADD MAN DIFF? YES
[2017-08-17 08:49] LABS: ALANINE AMINOTRANSFERASE 24 IU/L (13-69); ALBUMIN 2.2 g/dl (3.3-4.9); ALKALINE PHOSPHATASE 238 IU/L (42-121); ANION GAP 16 (8-16); ASPARTATE AMINO TRANSFERASE 32 IU/L (15-46); BILIRUBIN,INDIRECT 2.2 mg/dl (0-1.1); BILIRUBIN,TOTAL 17.7 mg/dl (0.2-1.3); BLOOD UREA NITROGEN 24 mg/dl (7-20); CALCIUM 7.9 mg/dl (8.4-10.2); CARBON DIOXIDE 13 mmol/L (21-31); CHLORIDE 108 mmol/L (97-110); GLUCOSE 72 mg/dl (70-220); POTASSIUM 4.2 mmol/L (3.5-5.1); SODIUM 133 mmol/L (135-144); TOTAL PROTEIN 5.3 g/dl (6.1-8.1)
[2017-08-17 08:52] LABS: MAGNESIUM 1.7 mg/dl (1.7-2.5)
[2017-08-17] MEDS: FLUCONAZOLE 200 MG TAB PO (09:02)
[2017-08-17] MEDS: RIFAXIMIN 550 MG TAB PO ×2 (09:02→20:17)
[2017-08-17] MEDS: LACTULOSE 30ML CUP PO ×4 (09:02→20:17)
[2017-08-17] MEDS: SUCRALFATE (100 MG/ML) 10ML CUP PO ×4 (09:02→20:17)
[2017-08-17 09:36] LABS: ANISOCYTOSIS 2+ (0-0); BAND NEUTROPHILS #M 1.9 10^3/ul (0.0-0.6); BAND NEUTROPHILS % (M) 6 % (0-4); BURR CELLS 2+ (0-0); EOSINOPHILS % (M) 1 % (0-7); LYMPHOCYTES #M 0.6 10^3/ul (0.8-2.9); LYMPHOCYTES % (M) 2 % (15-51); MICROCYTOSIS 1+ (0-0); MONOCYTE #M 2.6 10^3/ul (0.3-0.9); MONOCYTES % (M) 8 % (0-11); PLATELET ESTIMATE NORMAL; POIKILOCYTOSIS 2+ (0-0); SEG NEUT #M 27.9 10^3/ul (1.7-7.5); SEGMENTED NEUTROPHILS (M) % 83 % (39-77); SMUDGE%M 2 % (0-0)
[2017-08-17 11:40] LABS: ADD UMIC YES; UR ASCORBIC ACID NEGATIVE (NEGATIVE); UR BACTERIA FEW /HPF (NONE SEEN); UR BILIRUBIN (Dip) 2+ mg/dL (NEGATIVE); UR BLOOD (Dip) 1+ mg/dL (NEGATIVE); UR CLARITY CLOUDY (CLEAR); UR COLOR AMBER (YELLOW); UR GLUCOSE (Dip) NEGATIVE (NEGATIVE); UR KETONES (Dip) NEGATIVE (NEGATIVE); UR LEUKOCYTE ESTERASE (Dip) NEGATIVE Leu/ul (NEGATIVE); UR NITRITE (Dip) NEGATIVE (NEGATIVE); UR RBC 1 /HPF (0-5); UR SPECIFIC GRAVITY (Dip) 1.012 (1.003-1.030); UR SQUAMOUS EPITHELIAL CELL FEW /HPF (FEW); UR TOTAL PROTEIN (Dip) NEGATIVE (NEGATIVE); UR UROBILINOGEN (Dip) 1+ mg/dL (NEGATIVE); UR WBC 5 /HPF (0-5)
[2017-08-17 11:41] LABS: SODIUM,URINE RANDOM 36 mmol/L (30-90)
[2017-08-18] MEDS: morphine 2 MG INJ IV ×3 (05:35→18:21)
[2017-08-18] MEDS: AMPICILLIN/SULB 3 GM/NS (PMX) 100 ML IVPB ×4 (05:35→23:57)
[2017-08-18] MEDS: PANTOPRAZOLE (EC) 40 MG TAB PO ×2 (05:36→17:44)
[2017-08-18 06:06] LABS: ABNORMAL IP MESSAGE 1; HEMATOCRIT 22.7 % (42.0-52.0); HEMOGLOBIN 7.9 g/dl (14.0-18.0); MEAN CORPUSCULAR HEMOGLOBIN 34.3 pg (29.0-33.0); MEAN CORPUSCULAR HGB CONC 34.8 g/dl (32.0-37.0); MEAN CORPUSCULAR VOLUME 98.7 fl (82.0-101.0); MEAN PLATELET VOLUME 11.6 fl (7.4-10.4); PLATELET COUNT 190 10^3/UL (140-415); POSITIVE DIFF @See below; RED CELL DISTRIBUTION WIDTH 19.2 % (11.5-14.5)
[2017-08-18 06:33] LABS: ANION GAP 19 (8-16); BLOOD UREA NITROGEN 27 mg/dl (7-20); CARBON DIOXIDE 12 mmol/L (21-31); CHLORIDE 109 mmol/L (97-110); CREATININE 3.32 mg/dl (0.61-1.24); GLUCOSE 80 mg/dl (70-220); PHOSPHORUS 5.6 mg/dl (2.5-4.9); POTASSIUM 4.1 mmol/L (3.5-5.1); SODIUM 136 mmol/L (135-144)
[2017-08-18 06:36] LABS: ADD MAN DIFF? YES
[2017-08-18] MEDS: FLUCONAZOLE 200 MG TAB PO (08:16)
[2017-08-18] MEDS: RIFAXIMIN 550 MG TAB PO ×2 (08:16→20:35)
[2017-08-18] MEDS: SUCRALFATE (100 MG/ML) 10ML CUP PO ×4 (08:16→20:34)
[2017-08-18] MEDS: LACTULOSE 30ML CUP PO ×4 (08:17→20:34)
[2017-08-18 09:04] LABS: ANISOCYTOSIS 2+ (0-0); BAND NEUTROPHILS #M 4.6 10^3/ul (0.0-0.6); BAND NEUTROPHILS % (M) 14 % (0-4); BASOPHIL #M 0.6 10^3/ul (0.0-0.0); BASOPHILS % (M) 2 % (0-2); BURR CELLS 3+ (0-0); EOSINOPHILS % (M) 3 % (0-7); LYMPHOCYTES #M 2.6 10^3/ul (0.8-2.9); LYMPHOCYTES % (M) 8 % (15-51); MONOCYTE #M 1.9 10^3/ul (0.3-0.9); MONOCYTES % (M) 6 % (0-11); PLATELET ESTIMATE NORMAL; POIKILOCYTOSIS 3+ (0-0); SEG NEUT #M 23.6 10^3/ul (1.7-7.5); SEGMENTED NEUTROPHILS (M) % 67 % (39-77); SMUDGE%M 2 % (0-0)
[2017-08-18 09:29] LABS: AADO2 Arterial 36.1 mmHg (7.0-24.0); Allen Test ACCEPTAB; Arterial Base Excess -12.6 mmol/L (-3.0-3); Arterial Fraction of Oxyhgb 94.8 % (93.0-99.0); Arterial HCO3 11.9 mmol/L (22.0-26.0); Arterial MetHb 0.3 % (0.0-1.5); Arterial Total Hemglobin 9.1 g/dl (12.0-18.0); Arterial pCO2 23.2 mmhg (35-45); MODE ROOM AIR; Site Right Radial
[2017-08-18 13:26] LABS: CREATININE, RANDOM URINE 98 mg/dL (20-370); MICROALBUMIN 2.3 mg/dL; MICROALBUMIN/CREATININE RATIO 23 (<30)
[2017-08-19] MEDS: morphine 2 MG INJ IV ×4 (03:59→23:45)
[2017-08-19 05:35] LABS: ABNORMAL IP MESSAGE 1; HEMATOCRIT 23.9 % (42.0-52.0); MEAN CORPUSCULAR HEMOGLOBIN 33.5 pg (29.0-33.0); MEAN CORPUSCULAR HGB CONC 33.5 g/dl (32.0-37.0); MEAN PLATELET VOLUME 11.5 fl (7.4-10.4); PLATELET COUNT 195 10^3/UL (140-415); POSITIVE DIFF @See below; RED BLOOD COUNT 2.39 10^6/ul (4.70-6.10); RED CELL DISTRIBUTION WIDTH 19.5 % (11.5-14.5)
[2017-08-19 05:35] LABS: WHITE BLOOD COUNT 33.5 10^3/ul (4.8-10.8)
[2017-08-19] MEDS: PANTOPRAZOLE (EC) 40 MG TAB PO ×2 (05:41→17:54)
[2017-08-19] MEDS: AMPICILLIN/SULB 3 GM/NS (PMX) 100 ML IVPB ×4 (05:41→23:48)
[2017-08-19 06:08] LABS: ADD MAN DIFF? YES
[2017-08-19 06:44] LABS: ANION GAP 21 (8-16); BLOOD UREA NITROGEN 27 mg/dl (7-20); CALCIUM 7.9 mg/dl (8.4-10.2); CARBON DIOXIDE 11 mmol/L (21-31); CHLORIDE 113 mmol/L (97-110); GLUCOSE 82 mg/dl (70-220); MAGNESIUM 2.1 mg/dl (1.7-2.5); PHOSPHORUS 5.7 mg/dl (2.5-4.9); SODIUM 141 mmol/L (135-144)
[2017-08-19 08:00] LABS: ALANINE AMINOTRANSFERASE 24 IU/L (13-69); ALBUMIN 2.2 g/dl (3.3-4.9); ALKALINE PHOSPHATASE 247 IU/L (42-121); ASPARTATE AMINO TRANSFERASE 41 IU/L (15-46); BILIRUBIN,TOTAL 19.1 mg/dl (0.2-1.3); TOTAL PROTEIN 5.3 g/dl (6.1-8.1)
[2017-08-19] MEDS: LACTULOSE 30ML CUP PO ×4 (09:05→20:48)
[2017-08-19] MEDS: SUCRALFATE (100 MG/ML) 10ML CUP PO ×4 (09:05→20:48)
[2017-08-19] MEDS: FLUCONAZOLE 200 MG TAB PO (09:05)
[2017-08-19] MEDS: RIFAXIMIN 550 MG TAB PO ×2 (09:05→20:48)
[2017-08-19 11:01] LABS: ANISOCYTOSIS 2+ (0-0); BAND NEUTROPHILS #M 5.6 10^3/ul (0.0-0.6); BAND NEUTROPHILS % (M) 17 % (0-4); BASOPHIL #M 0.3 10^3/ul (0.0-0.0); BASOPHILS % (M) 1 % (0-2); BURR CELLS 3+ (0-0); EOSINOPHILS % (M) 1 % (0-7); GIANT THROMBO% (M) 1 % (0-0); LYMPHOCYTES % (M) 6 % (15-51); MICROCYTOSIS 1+ (0-0); MONOCYTE #M 0.6 10^3/ul (0.3-0.9); MONOCYTES % (M) 2 % (0-11); PLATELET ESTIMATE NORMAL; POIKILOCYTOSIS 3+ (0-0); SEG NEUT #M 26.3 10^3/ul (1.7-7.5); SEGMENTED NEUTROPHILS (M) % 73 % (39-77)
[2017-08-20] MEDS: PANTOPRAZOLE (EC) 40 MG TAB PO ×2 (06:04→18:10)
[2017-08-20] MEDS: AMPICILLIN/SULB 3 GM/NS (PMX) 100 ML IVPB ×4 (06:04→23:57)
[2017-08-20 06:15] LABS: ALANINE AMINOTRANSFERASE 21 IU/L (13-69); ALBUMIN 2.1 g/dl (3.3-4.9); ALKALINE PHOSPHATASE 240 IU/L (42-121); ASPARTATE AMINO TRANSFERASE 34 IU/L (15-46); BILIRUBIN,INDIRECT 2.1 mg/dl (0-1.1); TOTAL PROTEIN 5.3 g/dl (6.1-8.1)
[2017-08-20 06:17] LABS: ANION GAP 21 (8-16); BLOOD UREA NITROGEN 26 mg/dl (7-20); CALCIUM 8.2 mg/dl (8.4-10.2); CARBON DIOXIDE 11 mmol/L (21-31); CHLORIDE 116 mmol/L (97-110); CREATININE 3.72 mg/dl (0.61-1.24); GLUCOSE 98 mg/dl (70-220); MAGNESIUM 2.2 mg/dl (1.7-2.5); PHOSPHORUS 5.3 mg/dl (2.5-4.9); POTASSIUM 3.8 mmol/L (3.5-5.1); SODIUM 144 mmol/L (135-144)
[2017-08-20 06:20] LABS: BILIRUBIN,TOTAL 19.3 mg/dl (0.2-1.3)
[2017-08-20] MEDS: RIFAXIMIN 550 MG TAB PO ×2 (09:30→20:41)
[2017-08-20] MEDS: LACTULOSE 30ML CUP PO ×4 (09:30→20:41)
[2017-08-20] MEDS: SUCRALFATE (100 MG/ML) 10ML CUP PO ×4 (09:31→20:41)
[2017-08-20] MEDS: FLUCONAZOLE 200 MG TAB PO (09:31)
[2017-08-20] MEDS: FUROSEMIDE 20 MG TAB PO (09:31)
[2017-08-20] MEDS: morphine 2 MG INJ IV (09:48)
[2017-08-20 10:19] LABS: VANCOMYCIN,RANDOM 14.2 ug/ml
[2017-08-20] MEDS: ONDANSETRON 4 MG INJ IV (20:50)
[2017-08-21] MEDS: AMPICILLIN/SULB 3 GM/NS (PMX) 100 ML IVPB ×3 (05:13→17:10)
[2017-08-21] MEDS: PANTOPRAZOLE (EC) 40 MG TAB PO ×2 (05:13→17:10)
[2017-08-21 05:41] LABS: ABNORMAL IP MESSAGE 1; HEMATOCRIT 22.8 % (42.0-52.0); HEMOGLOBIN 7.8 g/dl (14.0-18.0); MEAN CORPUSCULAR HEMOGLOBIN 34.7 pg (29.0-33.0); MEAN CORPUSCULAR HGB CONC 34.2 g/dl (32.0-37.0); MEAN CORPUSCULAR VOLUME 101.3 fl (82.0-101.0); MEAN PLATELET VOLUME 11.3 fl (7.4-10.4); PLATELET COUNT 197 10^3/UL (140-415); POSITIVE DIFF @See below; RED BLOOD COUNT 2.25 10^6/ul (4.70-6.10); RED CELL DISTRIBUTION WIDTH 19.7 % (11.5-14.5)
[2017-08-21 05:53] LABS: ADD MAN DIFF? YES
[2017-08-21 06:17] LABS: ANION GAP 19 (8-16); BLOOD UREA NITROGEN 25 mg/dl (7-20); CALCIUM 7.9 mg/dl (8.4-10.2); CARBON DIOXIDE 11 mmol/L (21-31); CHLORIDE 117 mmol/L (97-110); CREATININE 3.82 mg/dl (0.61-1.24); GLUCOSE 87 mg/dl (70-220); MAGNESIUM 2.3 mg/dl (1.7-2.5); PHOSPHORUS 5.4 mg/dl (2.5-4.9); POTASSIUM 3.6 mmol/L (3.5-5.1); SODIUM 143 mmol/L (135-144)
[2017-08-21 07:55] LABS: ANISOCYTOSIS 2+ (0-0); BAND NEUTROPHILS #M 3.5 10^3/ul (0.0-0.6); BAND NEUTROPHILS % (M) 9 % (0-4); BASOPHIL #M 0.7 10^3/ul (0.0-0.0); BASOPHILS % (M) 2 % (0-2); BURR CELLS 3+ (0-0); EOSINOPHILS % (M) 2 % (0-7); LYMPHOCYTES #M 3.5 10^3/ul (0.8-2.9); LYMPHOCYTES % (M) 9 % (15-51); MICROCYTOSIS 1+ (0-0); MONOCYTE #M 2.3 10^3/ul (0.3-0.9); MONOCYTES % (M) 6 % (0-11); PLATELET ESTIMATE NORMAL; POIKILOCYTOSIS 3+ (0-0); POLYCHROMASIA 2+ (0-0); REACTIVE LYMPHOCYTES #M 0.3 10^3/ul (0.0-0.0); REACTIVE LYMPHOCYTES% (M) 1 % (0-0); SEG NEUT #M 29.1 10^3/ul (1.7-7.5); SEGMENTED NEUTROPHILS (M) % 71 % (39-77)
[2017-08-21] MEDS: FUROSEMIDE 20 MG TAB PO (09:00)
[2017-08-21] MEDS: SUCRALFATE (100 MG/ML) 10ML CUP PO ×4 (09:03→20:45)
[2017-08-21] MEDS: LACTULOSE 30ML CUP PO ×4 (09:03→20:53)
[2017-08-21] MEDS: RIFAXIMIN 550 MG TAB PO ×2 (09:04→20:53)
[2017-08-21] MEDS: FLUCONAZOLE 200 MG TAB PO (09:04)
[2017-08-21] MEDS: THIAMINE 100 MG TAB PO (12:17)
[2017-08-21] MEDS: CYANOCOBALAMIN 500 MCG TAB PO (12:17)
[2017-08-21] MEDS: FOLIC ACID 1 MG TAB PO (12:17)
[2017-08-21] MEDS: CITRIC ACID/SODIUM CITRATE 15 ML CUP PO ×2 (12:20→20:45)
[2017-08-21 12:25] LABS: HAAIG REFLEX REFLEX FILED
[2017-08-21 13:29] LABS: HEPATITIS B SURFACE ANTIGEN NEGATIVE (NEGATIVE)
[2017-08-21 13:47] LABS: HEPATITIS B CORE ANTIBODY NEGATIVE (NEGATIVE); HEPATITIS C VIRAL ANTIBODY NEGATIVE (NEGATIVE)
[2017-08-21] MEDS: NADOLOL 40 MG TAB PO (20:47)
[2017-08-22] MEDS: AMPICILLIN/SULB 3 GM/NS (PMX) 100 ML IVPB ×4 (00:07→17:55)
[2017-08-22] MEDS: PANTOPRAZOLE (EC) 40 MG TAB PO ×2 (05:31→17:27)
[2017-08-22 06:36] LABS: ABNORMAL IP MESSAGE 1; HEMATOCRIT 21.6 % (42.0-52.0); HEMOGLOBIN 7.4 g/dl (14.0-18.0); MEAN CORPUSCULAR HEMOGLOBIN 34.4 pg (29.0-33.0); MEAN CORPUSCULAR HGB CONC 34.3 g/dl (32.0-37.0); MEAN CORPUSCULAR VOLUME 100.5 fl (82.0-101.0); MEAN PLATELET VOLUME 11.3 fl (7.4-10.4); NUCLEATED RED BLOOD CELLS% 0.1 /100WBC (0.0-0.0); PLATELET COUNT 180 10^3/UL (140-415); POSITIVE DIFF @See below; RED BLOOD COUNT 2.15 10^6/ul (4.70-6.10); RED CELL DISTRIBUTION WIDTH 19.6 % (11.5-14.5)
[2017-08-22 06:37] LABS: ADD MAN DIFF? YES
[2017-08-22 07:30] LABS: ALANINE AMINOTRANSFERASE 22 IU/L (13-69); ALBUMIN/GLOBULIN RATIO 0.64; ALKALINE PHOSPHATASE 268 IU/L (42-121); ANION GAP 19 (8-16); ASPARTATE AMINO TRANSFERASE 27 IU/L (15-46); BILIRUBIN,INDIRECT 1.9 mg/dl (0-1.1); BILIRUBIN,TOTAL 17.8 mg/dl (0.2-1.3); BLOOD UREA NITROGEN 23 mg/dl (7-20); CALCIUM 7.8 mg/dl (8.4-10.2); CARBON DIOXIDE 11 mmol/L (21-31); CHLORIDE 114 mmol/L (97-110); CREATININE 3.86 mg/dl (0.61-1.24); GLUCOSE 73 mg/dl (70-220); POTASSIUM 3.4 mmol/L (3.5-5.1); SODIUM 141 mmol/L (135-144); TOTAL PROTEIN 5.1 g/dl (6.1-8.1)
[2017-08-22 07:33] LABS: MAGNESIUM 2.1 mg/dl (1.7-2.5)
[2017-08-22 07:33] LABS: PHOSPHORUS 5.6 mg/dl (2.5-4.9)
[2017-08-22 08:18] LABS: ANISOCYTOSIS 2+ (0-0); BAND NEUTROPHILS #M 0.7 10^3/ul (0.0-0.6); BAND NEUTROPHILS % (M) 2 % (0-4); BASOPHIL #M 0.3 10^3/ul (0.0-0.0); BASOPHILS % (M) 1 % (0-2); BURR CELLS 2+ (0-0); EOSINOPHILS % (M) 4 % (0-7); LYMPHOCYTES #M 3.1 10^3/ul (0.8-2.9); LYMPHOCYTES % (M) 8 % (15-51); MICROCYTOSIS 2+ (0-0); MONOCYTE #M 3.9 10^3/ul (0.3-0.9); MONOCYTES % (M) 10 % (0-11); PLATELET ESTIMATE NORMAL; POIKILOCYTOSIS 2+ (0-0); POLYCHROMASIA 1+ (0-0); SEG NEUT #M 29.5 10^3/ul (1.7-7.5); SEGMENTED NEUTROPHILS (M) % 75 % (39-77); SMUDGE%M 1 % (0-0)
[2017-08-22] MEDS: CITRIC ACID/SODIUM CITRATE 15 ML CUP PO ×3 (08:35→20:43)
[2017-08-22] MEDS: FLUCONAZOLE 200 MG TAB PO (08:35)
[2017-08-22] MEDS: RIFAXIMIN 550 MG TAB PO ×2 (08:35→20:42)
[2017-08-22] MEDS: FOLIC ACID 1 MG TAB PO (08:35)
[2017-08-22] MEDS: LACTULOSE 30ML CUP PO ×4 (08:36→20:43)
[2017-08-22] MEDS: CYANOCOBALAMIN 500 MCG TAB PO (08:36)
[2017-08-22] MEDS: SUCRALFATE (100 MG/ML) 10ML CUP PO ×4 (08:36→20:42)
[2017-08-22] MEDS: THIAMINE 100 MG TAB PO (08:36)
[2017-08-22] MEDS: FUROSEMIDE 20 MG TAB PO ×2 (08:38→17:56)
[2017-08-22] MEDS: LACTATED RINGER'S 500 ML IV (11:20)
[2017-08-22 14:23] LABS: IMMEDIATE SPIN CROSSMATCH 1 1
[2017-08-22] MEDS: NADOLOL 40 MG TAB PO (20:46)
[2017-08-22] MEDS: POTASSIUM CHLORIDE (SR) 20 MEQ TAB PO (22:29)
[2017-08-23] MEDS: AMPICILLIN/SULB 3 GM/NS (PMX) 100 ML IVPB ×5 (00:07→23:49)
[2017-08-23 05:04] LABS: ADD MAN DIFF? NO
[2017-08-23 05:11] LABS: WHITE BLOOD COUNT 43.5 10^3/ul (4.8-10.8)
[2017-08-23 05:11] LABS: ABNORMAL IP MESSAGE 1; BASOPHIL # 0.1 10^3/ul (0.0-0.1); BASOPHILS % 0.2 % (0.0-2.0); EOSINOPHILS # 1.5 10^3/ul (0.0-0.5); EOSINOPHILS % 3.5 % (0.0-7.0); HEMATOCRIT 24.6 % (42.0-52.0); HEMOGLOBIN 8.6 g/dl (14.0-18.0); LYMPHOCYTES % 6.9 % (15.0-51.0); MEAN CORPUSCULAR HEMOGLOBIN 33.7 pg (29.0-33.0); MEAN CORPUSCULAR VOLUME 96.5 fl (82.0-101.0); MEAN PLATELET VOLUME 11.9 fl (7.4-10.4); MONOCYTE # 3.1 10^3/ul (0.3-0.9); MONOCYTES % 7.1 % (0.0-11.0); NEUTROPHIL # 34.4 10^3/ul (1.6-7.5); NEUTROPHILS % 79.2 % (39.0-77.0); PLATELET COUNT 175 10^3/UL (140-415); POSITIVE DIFF @See below; RED BLOOD COUNT 2.55 10^6/ul (4.70-6.10); RED CELL DISTRIBUTION WIDTH 20.4 % (11.5-14.5)
[2017-08-23] MEDS: PANTOPRAZOLE (EC) 40 MG TAB PO ×2 (05:27→17:59)
[2017-08-23 05:52] LABS: ALANINE AMINOTRANSFERASE 21 IU/L (13-69); ALBUMIN 2.1 g/dl (3.3-4.9); ALKALINE PHOSPHATASE 244 IU/L (42-121); ANION GAP 21 (8-16); ASPARTATE AMINO TRANSFERASE 30 IU/L (15-46); BILIRUBIN,TOTAL 19.7 mg/dl (0.2-1.3); BLOOD UREA NITROGEN 24 mg/dl (7-20); CHLORIDE 112 mmol/L (97-110); CREATININE 3.97 mg/dl (0.61-1.24); GLUCOSE 93 mg/dl (70-220); POTASSIUM 3.8 mmol/L (3.5-5.1); SODIUM 139 mmol/L (135-144); TOTAL PROTEIN 5.6 g/dl (6.1-8.1)
[2017-08-23 05:57] LABS: CARBON DIOXIDE 10 mmol/L (21-31)
[2017-08-23] MEDS: FUROSEMIDE 20 MG TAB PO (09:00)
[2017-08-23] MEDS: LACTULOSE 30ML CUP PO ×4 (09:00→21:00)
[2017-08-23] MEDS: THIAMINE 100 MG TAB PO (09:27)
[2017-08-23] MEDS: SUCRALFATE (100 MG/ML) 10ML CUP PO ×4 (09:27→21:16)
[2017-08-23] MEDS: FLUCONAZOLE 200 MG TAB PO (09:27)
[2017-08-23] MEDS: CITRIC ACID/SODIUM CITRATE 15 ML CUP PO ×3 (09:27→21:22)
[2017-08-23] MEDS: RIFAXIMIN 550 MG TAB PO ×2 (09:27→21:16)
[2017-08-23] MEDS: FOLIC ACID 1 MG TAB PO (09:30)
[2017-08-23] MEDS: CYANOCOBALAMIN 500 MCG TAB PO (09:31)
[2017-08-23] MEDS: NADOLOL 40 MG TAB PO (21:00)
[2017-08-24 04:40] LABS: ADD UMIC YES; UR ASCORBIC ACID 20 mg/dL (NEGATIVE); UR BACTERIA FEW /HPF (NONE SEEN); UR BILIRUBIN (Dip) 2+ mg/dL (NEGATIVE); UR BLOOD (Dip) NEGATIVE (NEGATIVE); UR CLARITY SLIGHTLY CLOUDY (CLEAR); UR COLOR AMBER (YELLOW); UR GLUCOSE (Dip) NEGATIVE (NEGATIVE); UR KETONES (Dip) NEGATIVE (NEGATIVE); UR LEUKOCYTE ESTERASE (Dip) NEGATIVE Leu/ul (NEGATIVE); UR MUCUS FEW /HPF (NONE SEEN); UR NITRITE (Dip) NEGATIVE (NEGATIVE); UR RBC 0 /HPF (0-5); UR TOTAL PROTEIN (Dip) 1+ mg/dl (NEGATIVE); UR UROBILINOGEN (Dip) 2+ mg/dL (NEGATIVE); UR WBC 3 /HPF (0-5)
[2017-08-24] MEDS: PANTOPRAZOLE (EC) 40 MG TAB PO ×2 (05:18→17:29)
[2017-08-24] MEDS: AMPICILLIN/SULB 3 GM/NS (PMX) 100 ML IVPB ×2 (05:18→12:57)
[2017-08-24 06:55] LABS: WHITE BLOOD COUNT 41.6 10^3/ul (4.8-10.8)
[2017-08-24 06:55] LABS: ABNORMAL IP MESSAGE 1; HEMATOCRIT 25.2 % (42.0-52.0); HEMOGLOBIN 8.8 g/dl (14.0-18.0); MEAN CORPUSCULAR HEMOGLOBIN 33.5 pg (29.0-33.0); MEAN CORPUSCULAR HGB CONC 34.9 g/dl (32.0-37.0); MEAN CORPUSCULAR VOLUME 95.8 fl (82.0-101.0); MEAN PLATELET VOLUME 11.9 fl (7.4-10.4); PLATELET COUNT 162 10^3/UL (140-415); POSITIVE DIFF @See below; RED BLOOD COUNT 2.63 10^6/ul (4.70-6.10); RED CELL DISTRIBUTION WIDTH 20.2 % (11.5-14.5)
[2017-08-24 07:06] LABS: ADD MAN DIFF? YES
[2017-08-24 07:29] LABS: ALANINE AMINOTRANSFERASE 25 IU/L (13-69); ALBUMIN 2.1 g/dl (3.3-4.9); ALBUMIN/GLOBULIN RATIO 0.56; ALKALINE PHOSPHATASE 259 IU/L (42-121); ANION GAP 19 (8-16); ASPARTATE AMINO TRANSFERASE 28 IU/L (15-46); BLOOD UREA NITROGEN 25 mg/dl (7-20); CALCIUM 8.1 mg/dl (8.4-10.2); CARBON DIOXIDE 13 mmol/L (21-31); CHLORIDE 110 mmol/L (97-110); CREATININE 3.91 mg/dl (0.61-1.24); GLUCOSE 79 mg/dl (70-220); POTASSIUM 3.5 mmol/L (3.5-5.1); SODIUM 138 mmol/L (135-144); TOTAL PROTEIN 5.8 g/dl (6.1-8.1)
[2017-08-24 07:33] LABS: BILIRUBIN,TOTAL 20.6 mg/dl (0.2-1.3)
[2017-08-24 07:36] LABS: PHOSPHORUS 5.6 mg/dl (2.5-4.9)
[2017-08-24 07:41] LABS: AMMONIA 49 umol/l (9-30)
[2017-08-24 07:46] LABS: CREATININE,URINE RANDOM 99.17 mg/dl (20-370)
[2017-08-24 07:46] LABS: SODIUM,URINE RANDOM 25 mmol/L (30-90)
[2017-08-24] MEDS: SUCRALFATE (100 MG/ML) 10ML CUP PO ×4 (08:42→21:35)
[2017-08-24] MEDS: CITRIC ACID/SODIUM CITRATE 15 ML CUP PO ×3 (08:42→21:35)
[2017-08-24] MEDS: CYANOCOBALAMIN 500 MCG TAB PO (08:42)
[2017-08-24] MEDS: FOLIC ACID 1 MG TAB PO (08:42)
[2017-08-24] MEDS: RIFAXIMIN 550 MG TAB PO ×2 (08:43→21:35)
[2017-08-24] MEDS: THIAMINE 100 MG TAB PO (08:43)
[2017-08-24] MEDS: LACTULOSE 30ML CUP PO ×4 (08:46→21:00)
[2017-08-24] MEDS: FUROSEMIDE 20 MG TAB PO (08:47)
[2017-08-24 09:44] LABS: ANISOCYTOSIS 2+ (0-0); BAND NEUTROPHILS #M 2.9 10^3/ul (0.0-0.6); BAND NEUTROPHILS % (M) 7 % (0-4); BURR CELLS 3+ (0-0); EOSINOPHILS % (M) 5 % (0-7); HYPOCHROMASIA 1+ (0-0); LYMPHOCYTES #M 3.7 10^3/ul (0.8-2.9); LYMPHOCYTES % (M) 9 % (15-51); MONOCYTE #M 0.8 10^3/ul (0.3-0.9); MONOCYTES % (M) 2 % (0-11); PLATELET ESTIMATE NORMAL; POIKILOCYTOSIS 1+ (0-0); SEG NEUT #M 33.2 10^3/ul (1.7-7.5); SEGMENTED NEUTROPHILS (M) % 77 % (39-77)
[2017-08-24] MEDS: NADOLOL 40 MG TAB PO (21:00)
[2017-08-24] MEDS: SOD CHLORIDE 0.9% IVPB (21:35)
[2017-08-24] MEDS: AMPICILLIN IVPB (21:35)
[2017-08-24] MEDS: SULBAC IVPB (21:35)
[2017-08-25] MEDS: AMPICILLIN IVPB ×3 (05:45→21:52)
[2017-08-25] MEDS: SOD CHLORIDE 0.9% IVPB ×3 (05:45→21:52)
[2017-08-25] MEDS: PANTOPRAZOLE (EC) 40 MG TAB PO ×2 (05:45→17:42)
[2017-08-25] MEDS: SULBAC IVPB ×3 (05:45→21:52)
[2017-08-25 05:56] LABS: ADD MAN DIFF? NO
[2017-08-25 06:07] LABS: ABNORMAL IP MESSAGE 1; BASOPHIL # 0.2 10^3/ul (0.0-0.1); BASOPHILS % 0.5 % (0.0-2.0); EOSINOPHILS # 1.6 10^3/ul (0.0-0.5); EOSINOPHILS % 3.6 % (0.0-7.0); HEMATOCRIT 24.4 % (42.0-52.0); HEMOGLOBIN 8.6 g/dl (14.0-18.0); LYMPHOCYTES # 3.3 10^3/ul (0.8-2.9); LYMPHOCYTES % 7.4 % (15.0-51.0); MEAN CORPUSCULAR HEMOGLOBIN 33.3 pg (29.0-33.0); MEAN CORPUSCULAR HGB CONC 35.2 g/dl (32.0-37.0); MEAN CORPUSCULAR VOLUME 94.6 fl (82.0-101.0); MEAN PLATELET VOLUME 12.2 fl (7.4-10.4); MONOCYTE # 3.4 10^3/ul (0.3-0.9); MONOCYTES % 7.6 % (0.0-11.0); NEUTROPHIL # 34.6 10^3/ul (1.6-7.5); NEUTROPHILS % 77.8 % (39.0-77.0); PLATELET COUNT 144 10^3/UL (140-415); POSITIVE DIFF @See below; RED BLOOD COUNT 2.58 10^6/ul (4.70-6.10); RED CELL DISTRIBUTION WIDTH 19.8 % (11.5-14.5)
[2017-08-25 06:07] LABS: WHITE BLOOD COUNT 44.5 10^3/ul (4.8-10.8)
[2017-08-25 06:47] LABS: ANION GAP 17 (8-16); BLOOD UREA NITROGEN 25 mg/dl (7-20); CALCIUM 8.3 mg/dl (8.4-10.2); CARBON DIOXIDE 14 mmol/L (21-31); CHLORIDE 110 mmol/L (97-110); CREATININE 3.94 mg/dl (0.61-1.24); GLUCOSE 92 mg/dl (70-220); MAGNESIUM 2.1 mg/dl (1.7-2.5); PHOSPHORUS 5.6 mg/dl (2.5-4.9); POTASSIUM 3.2 mmol/L (3.5-5.1); SODIUM 138 mmol/L (135-144)
[2017-08-25] MEDS: LACTULOSE 30ML CUP PO ×4 (08:56→21:06)
[2017-08-25] MEDS: SUCRALFATE (100 MG/ML) 10ML CUP PO ×4 (08:56→21:06)
[2017-08-25] MEDS: RIFAXIMIN 550 MG TAB PO ×2 (08:56→21:06)
[2017-08-25] MEDS: CITRIC ACID/SODIUM CITRATE 15 ML CUP PO ×3 (08:56→21:06)
[2017-08-25] MEDS: CYANOCOBALAMIN 500 MCG TAB PO (08:56)
[2017-08-25] MEDS: THIAMINE 100 MG TAB PO (08:57)
[2017-08-25] MEDS: POTASSIUM CHLORIDE (SR) 20 MEQ TAB PO (08:57)
[2017-08-25] MEDS: FOLIC ACID 1 MG TAB PO (08:57)
[2017-08-25] MEDS: FUROSEMIDE 20 MG TAB PO (08:58)
[2017-08-25 12:06] LABS: CREATININE, RANDOM URINE 115 mg/dL (20-370); MICROALBUMIN 1.4 mg/dL; MICROALBUMIN/CREATININE RATIO 12 (<30)
[2017-08-25] MEDS: DAPTOMYCIN 335 MG in SOD CHLORIDE 0.9% 100 ML IVPB (15:04)
[2017-08-25] MEDS: NADOLOL 40 MG TAB PO (21:07)
[2017-08-26] MEDS: AMPICILLIN IVPB ×2 (05:34→13:11)
[2017-08-26] MEDS: SULBAC IVPB ×2 (05:34→13:11)
[2017-08-26] MEDS: SOD CHLORIDE 0.9% IVPB ×2 (05:34→13:11)
[2017-08-26] MEDS: PANTOPRAZOLE (EC) 40 MG TAB PO ×2 (05:34→17:04)
[2017-08-26] MEDS: morphine 2 MG INJ IV (05:51)
[2017-08-26 07:40] LABS: WHITE BLOOD COUNT 40.2 10^3/ul (4.8-10.8)
[2017-08-26 07:40] LABS: ABNORMAL IP MESSAGE 1; HEMOGLOBIN 8.2 g/dl (14.0-18.0); MEAN CORPUSCULAR HEMOGLOBIN 33.5 pg (29.0-33.0); MEAN CORPUSCULAR HGB CONC 35.7 g/dl (32.0-37.0); MEAN CORPUSCULAR VOLUME 93.9 fl (82.0-101.0); MEAN PLATELET VOLUME 13.1 fl (7.4-10.4); PLATELET COUNT 133 10^3/UL (140-415); POSITIVE DIFF @See below; RED BLOOD COUNT 2.45 10^6/ul (4.70-6.10); RED CELL DISTRIBUTION WIDTH 19.7 % (11.5-14.5)
[2017-08-26 07:44] LABS: ADD MAN DIFF? YES
[2017-08-26 08:10] LABS: CREATINE KINASE 23 IU/L (23-200)
[2017-08-26] MEDS: CITRIC ACID/SODIUM CITRATE 15 ML CUP PO ×3 (08:45→21:15)
[2017-08-26] MEDS: FOLIC ACID 1 MG TAB PO (08:45)
[2017-08-26] MEDS: LACTULOSE 30ML CUP PO ×4 (08:45→21:00)
[2017-08-26] MEDS: CYANOCOBALAMIN 500 MCG TAB PO (08:45)
[2017-08-26] MEDS: SUCRALFATE (100 MG/ML) 10ML CUP PO ×4 (08:45→21:15)
[2017-08-26] MEDS: RIFAXIMIN 550 MG TAB PO ×2 (08:46→21:25)
[2017-08-26] MEDS: THIAMINE 100 MG TAB PO (08:46)
[2017-08-26 09:02] LABS: ANION GAP 19 (8-16); BLOOD UREA NITROGEN 25 mg/dl (7-20); CARBON DIOXIDE 14 mmol/L (21-31); CHLORIDE 110 mmol/L (97-110); GLUCOSE 83 mg/dl (70-220); MAGNESIUM 2.1 mg/dl (1.7-2.5); PHOSPHORUS 5.6 mg/dl (2.5-4.9); POTASSIUM 3.7 mmol/L (3.5-5.1); SODIUM 139 mmol/L (135-144)
[2017-08-26 09:08] LABS: ANISOCYTOSIS 2+ (0-0); BAND NEUTROPHILS #M 0.8 10^3/ul (0.0-0.6); BAND NEUTROPHILS % (M) 2 % (0-4); BURR CELLS 3+ (0-0); EOSINOPHILS % (M) 6 % (0-7); LYMPHOCYTES % (M) 5 % (15-51); MICROCYTOSIS 2+ (0-0); MONOCYTE #M 1.6 10^3/ul (0.3-0.9); MONOCYTES % (M) 4 % (0-11); PLATELET ESTIMATE DECREASED; POIKILOCYTOSIS 3+ (0-0); POLYCHROMASIA 3+ (0-0); SEG NEUT #M 33.7 10^3/ul (1.7-7.5); SEGMENTED NEUTROPHILS (M) % 83 % (39-77)
[2017-08-26] MEDS: BALSAM PERU/CASTOR OIL 60 GM TUBE TOP ×2 (12:35→21:27)
[2017-08-26] MEDS: FUROSEMIDE 20 MG INJ IV ×2 (13:05→21:00)
[2017-08-26] MEDS: CEFTRIAXONE 1 GM/50 ML (PMX) 50 ML IVPB (15:13)
[2017-08-26 16:29] LABS: INR 2.81; PROTIME 30.4 Sec (11.9-14.9); PT RATIO 2.4
[2017-08-26 16:48] LABS: PARTIAL THROMBOPLASTIN TIME 81.4 Sec (25.0-35.0)
[2017-08-26] MEDS ORDERED: FUROSEMIDE 20 MG INJ IV (18:00)
[2017-08-26] MEDS: NADOLOL 40 MG TAB PO (21:00)
[2017-08-26] MEDS: ALBUMIN HUMAN 25% 100 ML IV (23:04)
[2017-08-27] MEDS: ALBUMIN HUMAN 25% 100 ML IV (00:22)
[2017-08-27] MEDS: PANTOPRAZOLE (EC) 40 MG TAB PO ×2 (05:28→17:27)
[2017-08-27] MEDS: morphine 2 MG INJ IV ×2 (05:42→16:36)
[2017-08-27] MEDS: FUROSEMIDE 20 MG INJ IV ×2 (05:45→17:27)
[2017-08-27 05:53] LABS: ADD MAN DIFF? NO
[2017-08-27 05:57] LABS: ABNORMAL IP MESSAGE 1; BASOPHIL # 0.2 10^3/ul (0.0-0.1); BASOPHILS % 0.5 % (0.0-2.0); EOSINOPHILS # 1.7 10^3/ul (0.0-0.5); EOSINOPHILS % 4.5 % (0.0-7.0); HEMOGLOBIN 7.5 g/dl (14.0-18.0); LYMPHOCYTES # 3.4 10^3/ul (0.8-2.9); LYMPHOCYTES % 9.1 % (15.0-51.0); MEAN CORPUSCULAR HEMOGLOBIN 33.5 pg (29.0-33.0); MEAN CORPUSCULAR HGB CONC 35.7 g/dl (32.0-37.0); MEAN CORPUSCULAR VOLUME 93.8 fl (82.0-101.0); MEAN PLATELET VOLUME 13.2 fl (7.4-10.4); MONOCYTE # 3.2 10^3/ul (0.3-0.9); MONOCYTES % 8.6 % (0.0-11.0); NEUTROPHIL # 27.4 10^3/ul (1.6-7.5); PLATELET COUNT 120 10^3/UL (140-415); POSITIVE DIFF @See below; RED BLOOD COUNT 2.24 10^6/ul (4.70-6.10); RED CELL DISTRIBUTION WIDTH 19.5 % (11.5-14.5)
[2017-08-27 05:57] LABS: WHITE BLOOD COUNT 37.1 10^3/ul (4.8-10.8)
[2017-08-27 06:29] LABS: ANION GAP 16 (8-16); BLOOD UREA NITROGEN 26 mg/dl (7-20); CALCIUM 8.5 mg/dl (8.4-10.2); CARBON DIOXIDE 17 mmol/L (21-31); CHLORIDE 109 mmol/L (97-110); CREATININE 3.94 mg/dl (0.61-1.24); GLUCOSE 78 mg/dl (70-220); PHOSPHORUS 5.9 mg/dl (2.5-4.9); POTASSIUM 3.2 mmol/L (3.5-5.1); SODIUM 139 mmol/L (135-144)
[2017-08-27] MEDS: SUCRALFATE (100 MG/ML) 10ML CUP PO ×4 (09:00→21:22)
[2017-08-27] MEDS: FOLIC ACID 1 MG TAB PO (09:01)
[2017-08-27] MEDS: CITRIC ACID/SODIUM CITRATE 15 ML CUP PO ×3 (09:01→21:22)
[2017-08-27] MEDS: LACTULOSE 30ML CUP PO ×4 (09:01→21:23)
[2017-08-27] MEDS: RIFAXIMIN 550 MG TAB PO ×2 (09:01→21:23)
[2017-08-27] MEDS: THIAMINE 100 MG TAB PO (09:01)
[2017-08-27] MEDS: CYANOCOBALAMIN 500 MCG TAB PO (09:01)
[2017-08-27] MEDS: BALSAM PERU/CASTOR OIL 60 GM TUBE TOP ×2 (09:01→21:24)
[2017-08-27] MEDS: ONDANSETRON 4 MG INJ IV ×2 (11:02→21:41)
[2017-08-27] MEDS: CEFTRIAXONE 1 GM/50 ML (PMX) 50 ML IVPB (13:56)
[2017-08-27] MEDS: DAPTOMYCIN 335 MG in SOD CHLORIDE 0.9% 100 ML IVPB (16:13)
[2017-08-27] MEDS: POTASSIUM CHLORIDE (SR) 20 MEQ TAB PO (16:14)
[2017-08-27 18:32] LABS: IMMEDIATE SPIN CROSSMATCH 1 1
[2017-08-27] MEDS: NADOLOL 40 MG TAB PO (21:00)
[2017-08-28 05:07] LABS: ADD MAN DIFF? NO
[2017-08-28 05:14] LABS: WHITE BLOOD COUNT 38.3 10^3/ul (4.8-10.8)
[2017-08-28 05:14] LABS: ABNORMAL IP MESSAGE 1; BASOPHIL # 0.1 10^3/ul (0.0-0.1); BASOPHILS % 0.3 % (0.0-2.0); EOSINOPHILS # 1.4 10^3/ul (0.0-0.5); EOSINOPHILS % 3.7 % (0.0-7.0); HEMATOCRIT 24.1 % (42.0-52.0); HEMOGLOBIN 8.5 g/dl (14.0-18.0); LYMPHOCYTES # 3.4 10^3/ul (0.8-2.9); LYMPHOCYTES % 8.9 % (15.0-51.0); MEAN CORPUSCULAR HEMOGLOBIN 32.7 pg (29.0-33.0); MEAN CORPUSCULAR HGB CONC 35.3 g/dl (32.0-37.0); MEAN CORPUSCULAR VOLUME 92.7 fl (82.0-101.0); MEAN PLATELET VOLUME 13.4 fl (7.4-10.4); MONOCYTE # 3.5 10^3/ul (0.3-0.9); MONOCYTES % 9.1 % (0.0-11.0); NEUTROPHIL # 28.5 10^3/ul (1.6-7.5); NEUTROPHILS % 74.4 % (39.0-77.0); PLATELET COUNT 121 10^3/UL (140-415); POSITIVE DIFF @See below; RED CELL DISTRIBUTION WIDTH 19.9 % (11.5-14.5)
[2017-08-28 05:26] LABS: ANION GAP 17 (8-16); BLOOD UREA NITROGEN 27 mg/dl (7-20); CALCIUM 8.2 mg/dl (8.4-10.2); CARBON DIOXIDE 16 mmol/L (21-31); CHLORIDE 111 mmol/L (97-110); CREATININE 3.76 mg/dl (0.61-1.24); GLUCOSE 77 mg/dl (70-220); PHOSPHORUS 5.7 mg/dl (2.5-4.9); POTASSIUM 3.3 mmol/L (3.5-5.1); SODIUM 141 mmol/L (135-144)
[2017-08-28] MEDS: PANTOPRAZOLE (EC) 40 MG TAB PO ×2 (05:54→17:57)
[2017-08-28] MEDS: morphine 2 MG INJ IV ×2 (05:54→16:04)
[2017-08-28] MEDS: FUROSEMIDE 20 MG INJ IV ×2 (05:59→17:57)
[2017-08-28 08:12] LABS: ANISOCYTOSIS 3+ (0-0); BAND NEUTROPHILS #M 3.8 10^3/ul (0.0-0.6); BAND NEUTROPHILS % (M) 10 % (0-4); BURR CELLS 3+ (0-0); EOSINOPHILS % (M) 8 % (0-7); GIANT THROMBO% (M) 1 % (0-0); LYMPHOCYTES #M 5.3 10^3/ul (0.8-2.9); LYMPHOCYTES % (M) 14 % (15-51); METAMYELOCYTES #M 0.3 10^3/ul (0.0-0.0); METAMYELOCYTES %M 1 % (0-0); MICROCYTOSIS 2+ (0-0); MONOCYTE #M 0.3 10^3/ul (0.3-0.9); MONOCYTES % (M) 1 % (0-11); PLATELET ESTIMATE NORMAL; POIKILOCYTOSIS 3+ (0-0); POLYCHROMASIA 3+ (0-0); SEG NEUT #M 26.7 10^3/ul (1.7-7.5); SEGMENTED NEUTROPHILS (M) % 66 % (39-77); SMUDGE%M 2 % (0-0)
[2017-08-28] MEDS: LACTULOSE 30ML CUP PO ×4 (08:58→21:00)
[2017-08-28] MEDS: SUCRALFATE (100 MG/ML) 10ML CUP PO ×4 (08:58→21:49)
[2017-08-28] MEDS: CYANOCOBALAMIN 500 MCG TAB PO (08:58)
[2017-08-28] MEDS: CITRIC ACID/SODIUM CITRATE 15 ML CUP PO ×3 (08:58→21:49)
[2017-08-28] MEDS: BALSAM PERU/CASTOR OIL 60 GM TUBE TOP ×2 (08:59→21:50)
[2017-08-28] MEDS: FOLIC ACID 1 MG TAB PO (08:59)
[2017-08-28] MEDS: THIAMINE 100 MG TAB PO (08:59)
[2017-08-28] MEDS: RIFAXIMIN 550 MG TAB PO ×2 (08:59→21:50)
[2017-08-28 11:17] LABS: ALANINE AMINOTRANSFERASE 18 IU/L (13-69); ALBUMIN 2.3 g/dl (3.3-4.9); ALKALINE PHOSPHATASE 216 IU/L (42-121); ASPARTATE AMINO TRANSFERASE 34 IU/L (15-46); BILIRUBIN,INDIRECT 3.2 mg/dl (0-1.1); BILIRUBIN,TOTAL 24.4 mg/dl (0.2-1.3); TOTAL PROTEIN 5.8 g/dl (6.1-8.1)
[2017-08-28] MEDS: POTASSIUM CHLORIDE (SR) 10 MEQ TAB PO (14:16)
[2017-08-28] MEDS: CEFTRIAXONE 1 GM/50 ML (PMX) 50 ML IVPB (14:18)
[2017-08-28] MEDS: NADOLOL 40 MG TAB PO (21:00)
[2017-08-28] MEDS: CASPOFUNGIN 70 MG in SOD CHLORIDE 0.9% 250 ML IVPB (21:49)
[2017-08-28] MEDS: ONDANSETRON 4 MG INJ IV (23:17)
[2017-08-29] MEDS: FUROSEMIDE 20 MG INJ IV ×2 (06:00→18:00)
[2017-08-29 06:21] LABS: WHITE BLOOD COUNT 41.9 10^3/ul (4.8-10.8)
[2017-08-29 06:21] LABS: ABNORMAL IP MESSAGE 1; HEMATOCRIT 23.4 % (42.0-52.0); HEMOGLOBIN 8.3 g/dl (14.0-18.0); MEAN CORPUSCULAR HEMOGLOBIN 32.5 pg (29.0-33.0); MEAN CORPUSCULAR HGB CONC 35.5 g/dl (32.0-37.0); MEAN CORPUSCULAR VOLUME 91.8 fl (82.0-101.0); MEAN PLATELET VOLUME 13.7 fl (7.4-10.4); PLATELET COUNT 123 10^3/UL (140-415); POSITIVE DIFF @See below; RED BLOOD COUNT 2.55 10^6/ul (4.70-6.10); RED CELL DISTRIBUTION WIDTH 20.3 % (11.5-14.5)
[2017-08-29 06:27] LABS: ADD MAN DIFF? YES
[2017-08-29] MEDS: PANTOPRAZOLE (EC) 40 MG TAB PO ×2 (06:40→18:21)
[2017-08-29 06:52] LABS: AMMONIA 36 umol/l (9-30)
[2017-08-29 06:54] LABS: ALANINE AMINOTRANSFERASE 21 IU/L (13-69); ALBUMIN 2.3 g/dl (3.3-4.9); ALBUMIN/GLOBULIN RATIO 0.71; ALKALINE PHOSPHATASE 216 IU/L (42-121); ANION GAP 18 (8-16); ASPARTATE AMINO TRANSFERASE 41 IU/L (15-46); BILIRUBIN,INDIRECT 2.2 mg/dl (0-1.1); BILIRUBIN,TOTAL 23.8 mg/dl (0.2-1.3); BLOOD UREA NITROGEN 28 mg/dl (7-20); CALCIUM 8.3 mg/dl (8.4-10.2); CARBON DIOXIDE 17 mmol/L (21-31); CHLORIDE 109 mmol/L (97-110); CREATININE 3.81 mg/dl (0.61-1.24); GLUCOSE 73 mg/dl (70-220); POTASSIUM 3.5 mmol/L (3.5-5.1); SODIUM 140 mmol/L (135-144); TOTAL PROTEIN 5.5 g/dl (6.1-8.1)
[2017-08-29 06:56] LABS: PHOSPHORUS 5.3 mg/dl (2.5-4.9)
[2017-08-29 07:03] LABS: AMYLASE 92 U/L (11-123)
[2017-08-29 07:03] LABS: LIPASE 528 U/L (23-300)
[2017-08-29 09:34] LABS: ACANTHOCYTES 1+ (0-0); ANISOCYTOSIS 2+ (0-0); BAND NEUTROPHILS #M 1.2 10^3/ul (0.0-0.6); BAND NEUTROPHILS % (M) 3 % (0-4); BURR CELLS 3+ (0-0); EOSINOPHILS % (M) 1 % (0-7); GIANT THROMBO% (M) 1 % (0-0); LYMPHOCYTES #M 4.1 10^3/ul (0.8-2.9); LYMPHOCYTES % (M) 10 % (15-51); MICROCYTOSIS 1+ (0-0); MONOCYTE #M 1.2 10^3/ul (0.3-0.9); MONOCYTES % (M) 3 % (0-11); MYELOCYTES #M 0.8 10^3/ul (0.0-0.0); MYELOCYTES % (M) 2 % (0-0); PLATELET ESTIMATE DECREASED; PLATELET MORPHOLOGY COMMENT @See below; POIKILOCYTOSIS 3+ (0-0); POLYCHROMASIA 2+ (0-0); SCHISTOCYTES 1+ (0-0); SEG NEUT #M 34.4 10^3/ul (1.7-7.5); SEGMENTED NEUTROPHILS (M) % 81 % (39-77); SMUDGE%M 3 % (0-0); TARGET CELLS 1+ (0-0)
[2017-08-29] MEDS: LACTULOSE 30ML CUP PO ×4 (10:26→21:13)
[2017-08-29] MEDS: THIAMINE 100 MG TAB PO (10:26)
[2017-08-29] MEDS: CITRIC ACID/SODIUM CITRATE 15 ML CUP PO ×3 (10:26→21:13)
[2017-08-29] MEDS: SUCRALFATE (100 MG/ML) 10ML CUP PO ×4 (10:26→21:13)
[2017-08-29] MEDS: FOLIC ACID 1 MG TAB PO (10:26)
[2017-08-29] MEDS: RIFAXIMIN 550 MG TAB PO ×2 (10:27→21:16)
[2017-08-29] MEDS: BALSAM PERU/CASTOR OIL 60 GM TUBE TOP ×2 (10:27→21:20)
[2017-08-29] MEDS: CYANOCOBALAMIN 500 MCG TAB PO (10:27)
[2017-08-29] MEDS: CEFTRIAXONE 1 GM/50 ML (PMX) 50 ML IVPB (14:01)
[2017-08-29] MEDS: morphine 2 MG INJ IV (14:51)
[2017-08-29] MEDS: DAPTOMYCIN 335 MG in SOD CHLORIDE 0.9% 100 ML IVPB (15:44)
[2017-08-29] MEDS: NADOLOL 40 MG TAB PO (21:00)
[2017-08-29] MEDS: CASPOFUNGIN 35 MG in SOD CHLORIDE 0.9% 250 ML IVPB (21:12)
[2017-08-29] MEDS: NYSTATIN 15 GM OINT TOP (21:13)
[2017-08-29] MEDS: ONDANSETRON 4 MG INJ IV (22:10)
[2017-08-30] MEDS: morphine 2 MG INJ IV ×3 (02:06→17:51)
[2017-08-30] MEDS: FUROSEMIDE 20 MG INJ IV ×2 (05:44→17:55)
[2017-08-30] MEDS: PANTOPRAZOLE (EC) 40 MG TAB PO ×2 (05:44→17:53)
[2017-08-30 06:34] LABS: ABNORMAL IP MESSAGE 1; HEMATOCRIT 22.3 % (42.0-52.0); HEMOGLOBIN 8.1 g/dl (14.0-18.0); MEAN CORPUSCULAR HEMOGLOBIN 33.2 pg (29.0-33.0); MEAN CORPUSCULAR HGB CONC 36.3 g/dl (32.0-37.0); MEAN CORPUSCULAR VOLUME 91.4 fl (82.0-101.0); MEAN PLATELET VOLUME 13.3 fl (7.4-10.4); PLATELET COUNT 129 10^3/UL (140-415); POSITIVE DIFF @See below; RED BLOOD COUNT 2.44 10^6/ul (4.70-6.10); RED CELL DISTRIBUTION WIDTH 20.1 % (11.5-14.5)
[2017-08-30 06:34] LABS: WHITE BLOOD COUNT 42.8 10^3/ul (4.8-10.8)
[2017-08-30 06:46] LABS: ADD MAN DIFF? YES
[2017-08-30 07:14] LABS: AMMONIA 34 umol/l (9-30)
[2017-08-30 07:17] LABS: PHOSPHORUS 5.6 mg/dl (2.5-4.9)
[2017-08-30 07:17] LABS: MAGNESIUM 1.9 mg/dl (1.7-2.5)
[2017-08-30 07:19] LABS: ALANINE AMINOTRANSFERASE 19 IU/L (13-69); ALBUMIN 2.2 g/dl (3.3-4.9); ALBUMIN/GLOBULIN RATIO 0.66; ALKALINE PHOSPHATASE 212 IU/L (42-121); ANION GAP 18 (8-16); ASPARTATE AMINO TRANSFERASE 35 IU/L (15-46); BILIRUBIN,INDIRECT 2.1 mg/dl (0-1.1); BILIRUBIN,TOTAL 23.6 mg/dl (0.2-1.3); BLOOD UREA NITROGEN 28 mg/dl (7-20); CALCIUM 8.4 mg/dl (8.4-10.2); CARBON DIOXIDE 17 mmol/L (21-31); CHLORIDE 110 mmol/L (97-110); CREATININE 3.72 mg/dl (0.61-1.24); GLUCOSE 79 mg/dl (70-220); POTASSIUM 3.3 mmol/L (3.5-5.1); SODIUM 142 mmol/L (135-144); TOTAL PROTEIN 5.5 g/dl (6.1-8.1)
[2017-08-30] MEDS: BALSAM PERU/CASTOR OIL 60 GM TUBE TOP ×2 (09:00→21:30)
[2017-08-30 09:08] LABS: ANISOCYTOSIS 2+ (0-0); BAND NEUTROPHILS #M 3.4 10^3/ul (0.0-0.6); BAND NEUTROPHILS % (M) 8 % (0-4); BASOPHIL #M 0.4 10^3/ul (0.0-0.0); BASOPHILS % (M) 1 % (0-2); EOSINOPHILS % (M) 3 % (0-7); LYMPHOCYTES #M 4.2 10^3/ul (0.8-2.9); LYMPHOCYTES % (M) 10 % (15-51); MICROCYTOSIS 1+ (0-0); MONOCYTE #M 2.1 10^3/ul (0.3-0.9); MONOCYTES % (M) 5 % (0-11); PLATELET ESTIMATE DECREASED; POIKILOCYTOSIS 3+ (0-0); POLYCHROMASIA 3+ (0-0); SEG NEUT #M 33.1 10^3/ul (1.7-7.5); SEGMENTED NEUTROPHILS (M) % 74 % (39-77); SMUDGE%M 2 % (0-0)
[2017-08-30] MEDS: SUCRALFATE (100 MG/ML) 10ML CUP PO ×4 (10:23→21:28)
[2017-08-30] MEDS: LACTULOSE 30ML CUP PO ×4 (10:23→21:28)
[2017-08-30] MEDS: FOLIC ACID 1 MG TAB PO (10:23)
[2017-08-30] MEDS: CITRIC ACID/SODIUM CITRATE 15 ML CUP PO ×3 (10:23→22:20)
[2017-08-30] MEDS: POTASSIUM CHLORIDE (SR) 20 MEQ TAB PO (10:24)
[2017-08-30] MEDS: RIFAXIMIN 550 MG TAB PO ×2 (10:24→21:28)
[2017-08-30] MEDS: NYSTATIN 15 GM OINT TOP ×2 (10:24→21:30)
[2017-08-30] MEDS: THIAMINE 100 MG TAB PO (10:24)
[2017-08-30] MEDS: CYANOCOBALAMIN 500 MCG TAB PO (10:24)
[2017-08-30] MEDS: ONDANSETRON 4 MG INJ IV ×2 (10:38→17:51)
[2017-08-30] MEDS ORDERED: CIPROFLOXACIN 200 MG/D5W IVPB 100 ML IVPB (12:30)
[2017-08-30] MEDS: metroNIDAZOLE 500 MG/NS (PMX) 100 ML IVPB ×2 (13:23→22:07)
[2017-08-30] MEDS: LEVOFLOXACIN 250MG/D5W (PMX) 50 ML IVPB (14:45)
[2017-08-30] MEDS: DOXYCYCLINE 100 MG in SOD CHLORIDE 0.9% 250 ML IVPB ×2 (16:49→23:26)
[2017-08-30] MEDS: CASPOFUNGIN 35 MG in SOD CHLORIDE 0.9% 250 ML IVPB (19:53)
[2017-08-30] MEDS: NADOLOL 40 MG TAB PO (21:00)
[2017-08-31] MEDS: morphine 2 MG INJ IV ×2 (00:16→21:16)
[2017-08-31] MEDS: ONDANSETRON 4 MG INJ IV (00:16)
[2017-08-31] MEDS: metroNIDAZOLE 500 MG/NS (PMX) 100 ML IVPB ×3 (05:58→23:00)
[2017-08-31] MEDS: PANTOPRAZOLE (EC) 40 MG TAB PO ×2 (05:59→17:36)
[2017-08-31] MEDS: FUROSEMIDE 20 MG INJ IV ×2 (06:05→17:35)
[2017-08-31 07:08] LABS: WHITE BLOOD COUNT 44.8 10^3/ul (4.8-10.8)
[2017-08-31 07:08] LABS: ABNORMAL IP MESSAGE 1; HEMATOCRIT 22.1 % (42.0-52.0); HEMOGLOBIN 7.9 g/dl (14.0-18.0); MEAN CORPUSCULAR HEMOGLOBIN 32.8 pg (29.0-33.0); MEAN CORPUSCULAR HGB CONC 35.7 g/dl (32.0-37.0); MEAN CORPUSCULAR VOLUME 91.7 fl (82.0-101.0); MEAN PLATELET VOLUME 13.5 fl (7.4-10.4); NUCLEATED RED BLOOD CELLS% 0.1 /100WBC (0.0-0.0); PLATELET COUNT 144 10^3/UL (140-415); POSITIVE DIFF @See below; RED BLOOD COUNT 2.41 10^6/ul (4.70-6.10); RED CELL DISTRIBUTION WIDTH 20.4 % (11.5-14.5)
[2017-08-31 07:14] LABS: ADD MAN DIFF? YES
[2017-08-31 07:46] LABS: AMMONIA 39 umol/l (9-30)
[2017-08-31 07:53] LABS: ALANINE AMINOTRANSFERASE 17 IU/L (13-69); ALBUMIN 2.2 g/dl (3.3-4.9); ALBUMIN/GLOBULIN RATIO 0.64; ALKALINE PHOSPHATASE 221 IU/L (42-121); ANION GAP 16 (8-16); ASPARTATE AMINO TRANSFERASE 43 IU/L (15-46); BILIRUBIN,INDIRECT 2.3 mg/dl (0-1.1); BILIRUBIN,TOTAL 24.7 mg/dl (0.2-1.3); BLOOD UREA NITROGEN 29 mg/dl (7-20); CALCIUM 8.6 mg/dl (8.4-10.2); CARBON DIOXIDE 17 mmol/L (21-31); CHLORIDE 111 mmol/L (97-110); CREATININE 3.94 mg/dl (0.61-1.24); GLUCOSE 88 mg/dl (70-220); POTASSIUM 3.2 mmol/L (3.5-5.1); SODIUM 141 mmol/L (135-144); TOTAL PROTEIN 5.6 g/dl (6.1-8.1)
[2017-08-31 07:54] LABS: MAGNESIUM 1.9 mg/dl (1.7-2.5)
[2017-08-31 07:54] LABS: PHOSPHORUS 5.5 mg/dl (2.5-4.9)
[2017-08-31] MEDS: FOLIC ACID 1 MG TAB PO (08:48)
[2017-08-31] MEDS: THIAMINE 100 MG TAB PO (08:48)
[2017-08-31] MEDS: SUCRALFATE (100 MG/ML) 10ML CUP PO ×4 (08:48→21:05)
[2017-08-31] MEDS: RIFAXIMIN 550 MG TAB PO ×2 (08:48→21:09)
[2017-08-31] MEDS: CYANOCOBALAMIN 500 MCG TAB PO (08:48)
[2017-08-31] MEDS: LACTULOSE 30ML CUP PO ×4 (08:48→21:05)
[2017-08-31] MEDS: CITRIC ACID/SODIUM CITRATE 15 ML CUP PO ×3 (08:49→20:57)
[2017-08-31] MEDS ORDERED: DOXYCYCLINE 100 MG in DEXTROSE 5% 250 ML IVPB (09:00)
[2017-08-31 10:31] LABS: LYMPHOCYTE - % CD4 (HELPER) 51 % (30-61); LYMPHOCYTE - %CD8 (SUPPRESSOR) 44 % (12-42); LYMPHOCYTE - ABSOLUTE 3889 cells/uL (850-3900); LYMPHOCYTE - ABSOLUTE CD4 1972 cells/uL (490-1740); LYMPHOCYTE - ABSOLUTE CD8 1713 cells/uL (180-1170); LYMPHOCYTE - CD4/CD8 RATIO 1.15 (0.86-5.00)
[2017-08-31] MEDS: DOXYCYCLINE 100 MG in SOD CHLORIDE 0.9% 250 ML IVPB (11:24)
[2017-08-31 12:01] LABS: CYTOMEGALOVIRUS ANTIBODY (IGG) >10.00 U/mL; CYTOMEGALOVIRUS ANTIBODY (IGM) <30.00 AU/mL
[2017-08-31] MEDS: BALSAM PERU/CASTOR OIL 60 GM TUBE TOP ×2 (12:25→21:09)
[2017-08-31] MEDS: NYSTATIN 15 GM OINT TOP ×2 (12:25→21:09)
[2017-08-31] MEDS: POTASSIUM CHLORIDE (SR) 20 MEQ TAB PO (12:26)
[2017-08-31] MEDS: LEVOFLOXACIN 250MG/D5W (PMX) 50 ML IVPB (13:08)
[2017-08-31 15:01] LABS: NIL 0.02 IU/mL; QUANTIFERON(R)-TB GOLD NEGATIVE (NEGATIVE)
[2017-08-31] MEDS: CASPOFUNGIN 35 MG in SOD CHLORIDE 0.9% 250 ML IVPB (20:23)
[2017-08-31] MEDS: MAGNESIUM HYDROXIDE 30ML CUP PO (20:57)
[2017-08-31] MEDS: NADOLOL 40 MG TAB PO (21:00)
[2017-08-31] MEDS: DOXYCYCLINE 100 MG in DEXTROSE 5% 250 ML IVPB (21:39)
[2017-09-01] MEDS: FUROSEMIDE 20 MG INJ IV ×2 (06:00→17:38)
[2017-09-01] MEDS: PANTOPRAZOLE (EC) 40 MG TAB PO ×2 (06:02→17:38)
[2017-09-01] MEDS: metroNIDAZOLE 500 MG/NS (PMX) 100 ML IVPB (06:02)
[2017-09-01 06:39] LABS: WHITE BLOOD COUNT 45.4 10^3/ul (4.8-10.8)
[2017-09-01 06:39] LABS: ABNORMAL IP MESSAGE 1; HEMOGLOBIN 8.1 g/dl (14.0-18.0); MEAN CORPUSCULAR HEMOGLOBIN 32.8 pg (29.0-33.0); MEAN CORPUSCULAR HGB CONC 35.2 g/dl (32.0-37.0); MEAN CORPUSCULAR VOLUME 93.1 fl (82.0-101.0); MEAN PLATELET VOLUME 13.1 fl (7.4-10.4); NUCLEATED RED BLOOD CELLS% 0.1 /100WBC (0.0-0.0); PLATELET COUNT 152 10^3/UL (140-415); POSITIVE DIFF @See below; RED BLOOD COUNT 2.47 10^6/ul (4.70-6.10)
[2017-09-01 06:42] LABS: ADD MAN DIFF? YES
[2017-09-01 07:13] LABS: ANION GAP 17 (8-16); BLOOD UREA NITROGEN 30 mg/dl (7-20); CALCIUM 8.4 mg/dl (8.4-10.2); CARBON DIOXIDE 17 mmol/L (21-31); CHLORIDE 108 mmol/L (97-110); CREATININE 3.92 mg/dl (0.61-1.24); GLUCOSE 93 mg/dl (70-220); MAGNESIUM 1.7 mg/dl (1.7-2.5); PHOSPHORUS 5.7 mg/dl (2.5-4.9); POTASSIUM 3.4 mmol/L (3.5-5.1); SODIUM 139 mmol/L (135-144)
[2017-09-01 07:52] LABS: ANISOCYTOSIS 2+ (0-0); BAND NEUTROPHILS #M 4.5 10^3/ul (0.0-0.6); BAND NEUTROPHILS % (M) 10 % (0-4); BURR CELLS 3+ (0-0); EOSINOPHILS % (M) 1 % (0-7); LYMPHOCYTES #M 3.6 10^3/ul (0.8-2.9); LYMPHOCYTES % (M) 8 % (15-51); MICROCYTOSIS 1+ (0-0); MONOCYTES % (M) 9 % (0-11); MYELOCYTES #M 1.3 10^3/ul (0.0-0.0); MYELOCYTES % (M) 3 % (0-0); PLATELET ESTIMATE NORMAL; POIKILOCYTOSIS 3+ (0-0); POLYCHROMASIA 1+ (0-0); SEG NEUT #M 33.4 10^3/ul (1.7-7.5); SEGMENTED NEUTROPHILS (M) % 69 % (39-77); SMUDGE%M 1 % (0-0)
[2017-09-01] MEDS: LACTULOSE 30ML CUP PO ×4 (08:57→21:42)
[2017-09-01] MEDS: CITRIC ACID/SODIUM CITRATE 15 ML CUP PO ×3 (08:57→21:40)
[2017-09-01] MEDS: FOLIC ACID 1 MG TAB PO (08:57)
[2017-09-01] MEDS: RIFAXIMIN 550 MG TAB PO ×2 (08:57→21:40)
[2017-09-01] MEDS: SUCRALFATE (100 MG/ML) 10ML CUP PO ×2 (08:57→12:49)
[2017-09-01] MEDS: DOXYCYCLINE 100 MG in DEXTROSE 5% 250 ML IVPB (08:58)
[2017-09-01] MEDS: CYANOCOBALAMIN 500 MCG TAB PO (08:58)
[2017-09-01] MEDS: POTASSIUM CHLORIDE (SR) 20 MEQ TAB PO (09:33)
[2017-09-01] MEDS: BALSAM PERU/CASTOR OIL 60 GM TUBE TOP ×2 (09:35→21:49)
[2017-09-01] MEDS: NYSTATIN 15 GM OINT TOP ×2 (09:35→21:49)
[2017-09-01] MEDS: NADOLOL 40 MG TAB PO (21:00)
[2017-09-01] MEDS: morphine 2 MG INJ IV (22:11)
[2017-09-02] MEDS: PANTOPRAZOLE (EC) 40 MG TAB PO ×2 (05:39→17:55)
[2017-09-02] MEDS: FUROSEMIDE 20 MG INJ IV ×2 (06:00→17:03)
[2017-09-02 06:47] LABS: ANION GAP 19 (8-16); BLOOD UREA NITROGEN 32 mg/dl (7-20); CALCIUM 8.4 mg/dl (8.4-10.2); CARBON DIOXIDE 16 mmol/L (21-31); CHLORIDE 107 mmol/L (97-110); CREATININE 4.26 mg/dl (0.61-1.24); GLUCOSE 86 mg/dl (70-220); MAGNESIUM 1.7 mg/dl (1.7-2.5); PHOSPHORUS 6.3 mg/dl (2.5-4.9); POTASSIUM 3.7 mmol/L (3.5-5.1); SODIUM 138 mmol/L (135-144)
[2017-09-02] MEDS: CITRIC ACID/SODIUM CITRATE 15 ML CUP PO ×3 (09:45→22:38)
[2017-09-02] MEDS: LACTULOSE 30ML CUP PO ×4 (09:46→21:00)
[2017-09-02] MEDS: FOLIC ACID 1 MG TAB PO (09:46)
[2017-09-02] MEDS: BALSAM PERU/CASTOR OIL 60 GM TUBE TOP ×2 (09:46→21:25)
[2017-09-02] MEDS: FLUCONAZOLE 100 MG TAB PO (09:46)
[2017-09-02] MEDS: NYSTATIN 15 GM OINT TOP ×2 (09:46→21:25)
[2017-09-02] MEDS: RIFAXIMIN 550 MG TAB PO ×2 (09:46→22:38)
[2017-09-02] MEDS: CYANOCOBALAMIN 500 MCG TAB PO (09:46)
[2017-09-02] MEDS: ONDANSETRON 4 MG INJ IV (09:55)
[2017-09-02] MEDS: SOD CHLORIDE 0.9% 250 ML IV ×2 (10:39→22:39)
[2017-09-02 10:47] LABS: WHITE BLOOD COUNT 48.8 10^3/ul (4.8-10.8)
[2017-09-02 10:47] LABS: ABNORMAL IP MESSAGE 1; HEMATOCRIT 23.5 % (42.0-52.0); HEMOGLOBIN 8.2 g/dl (14.0-18.0); MEAN CORPUSCULAR HEMOGLOBIN 33.1 pg (29.0-33.0); MEAN CORPUSCULAR HGB CONC 34.9 g/dl (32.0-37.0); MEAN CORPUSCULAR VOLUME 94.8 fl (82.0-101.0); NUCLEATED RED BLOOD CELLS% 0.2 /100WBC (0.0-0.0); PLATELET COUNT 168 10^3/UL (140-415); POSITIVE DIFF @See below; RED BLOOD COUNT 2.48 10^6/ul (4.70-6.10); RED CELL DISTRIBUTION WIDTH 21.5 % (11.5-14.5)
[2017-09-02 10:56] LABS: ADD MAN DIFF? YES
[2017-09-02] MEDS: HYDROCODONE/APAP (5/325) TAB PO (12:04)
[2017-09-02 13:12] LABS: ANISOCYTOSIS 2+ (0-0); BAND NEUTROPHILS #M 4.3 10^3/ul (0.0-0.6); BAND NEUTROPHILS % (M) 9 % (0-4); BASOPHIL #M 0.4 10^3/ul (0.0-0.0); BASOPHILS % (M) 1 % (0-2); BURR CELLS 3+ (0-0); EOSINOPHILS % (M) 2 % (0-7); GIANT THROMBO% (M) 1 % (0-0); LYMPHOCYTES #M 1.9 10^3/ul (0.8-2.9); LYMPHOCYTES % (M) 4 % (15-51); MICROCYTOSIS 1+ (0-0); MONOCYTE #M 3.9 10^3/ul (0.3-0.9); MONOCYTES % (M) 8 % (0-11); MYELOCYTES #M 0.4 10^3/ul (0.0-0.0); MYELOCYTES % (M) 1 % (0-0); PLATELET ESTIMATE NORMAL; POIKILOCYTOSIS 3+ (0-0); POLYCHROMASIA 1+ (0-0); SEG NEUT #M 38.7 10^3/ul (1.7-7.5); SEGMENTED NEUTROPHILS (M) % 75 % (39-77)
[2017-09-02] MEDS ORDERED: HYDROmorphONE 2 MG TAB PO (19:00)
[2017-09-02] MEDS: NADOLOL 40 MG TAB PO (21:00)
[2017-09-03] MEDS: SOD CHLORIDE 0.9% 250 ML IV (03:17)
[2017-09-03] MEDS: ALBUMIN HUMAN 5% 250 ML IV (04:28)
[2017-09-03] MEDS: FUROSEMIDE 20 MG INJ IV (05:48)
[2017-09-03] MEDS: PANTOPRAZOLE (EC) 40 MG TAB PO ×2 (05:48→16:42)
[2017-09-03 06:44] LABS: WHITE BLOOD COUNT 53.6 10^3/ul (4.8-10.8)
[2017-09-03 06:44] LABS: ABNORMAL IP MESSAGE 1; HEMATOCRIT 23.1 % (42.0-52.0); HEMOGLOBIN 8.1 g/dl (14.0-18.0); MEAN CORPUSCULAR HEMOGLOBIN 32.9 pg (29.0-33.0); MEAN CORPUSCULAR HGB CONC 35.1 g/dl (32.0-37.0); MEAN CORPUSCULAR VOLUME 93.9 fl (82.0-101.0); MEAN PLATELET VOLUME 12.7 fl (7.4-10.4); NUCLEATED RED BLOOD CELLS% 0.1 /100WBC (0.0-0.0); PLATELET COUNT 181 10^3/UL (140-415); POSITIVE DIFF @See below; RED BLOOD COUNT 2.46 10^6/ul (4.70-6.10); RED CELL DISTRIBUTION WIDTH 21.5 % (11.5-14.5)
[2017-09-03 06:55] LABS: ADD MAN DIFF? YES
[2017-09-03] MEDS ORDERED: NORepinephrine 8MG/250 ML (PMX 250 ML (07:03)
[2017-09-03 07:12] LABS: INR 3.36; PROTIME 35.1 Sec (11.9-14.9); PT RATIO 2.7
[2017-09-03 07:25] LABS: ANION GAP 20 (8-16); BLOOD UREA NITROGEN 36 mg/dl (7-20); CALCIUM 8.7 mg/dl (8.4-10.2); CARBON DIOXIDE 16 mmol/L (21-31); CHLORIDE 103 mmol/L (97-110); CREATININE 5.08 mg/dl (0.61-1.24); GLUCOSE 106 mg/dl (70-220); MAGNESIUM 1.8 mg/dl (1.7-2.5); PHOSPHORUS 7.3 mg/dl (2.5-4.9); POTASSIUM 3.7 mmol/L (3.5-5.1); SODIUM 135 mmol/L (135-144)
[2017-09-03] MEDS: NORepinephrine 8MG/250 ML (PMX 250 ML IV (07:33)
[2017-09-03 08:15] LABS: ANISOCYTOSIS 2+ (0-0); BAND NEUTROPHILS #M 3.7 10^3/ul (0.0-0.6); BAND NEUTROPHILS % (M) 7 % (0-4); BURR CELLS 3+ (0-0); EOSINOPHILS % (M) 1 % (0-7); ERYTHROBLAST% (NRBC) (M) 1 % (0-0); GIANT THROMBO% (M) 1 % (0-0); LYMPHOCYTES #M 2.1 10^3/ul (0.8-2.9); LYMPHOCYTES % (M) 4 % (15-51); MICROCYTOSIS 1+ (0-0); MONOCYTE #M 1.6 10^3/ul (0.3-0.9); MONOCYTES % (M) 3 % (0-11); PLATELET ESTIMATE NORMAL; POIKILOCYTOSIS 3+ (0-0); POLYCHROMASIA 2+ (0-0); REACTIVE LYMPHOCYTES #M 0.5 10^3/ul (0.0-0.0); REACTIVE LYMPHOCYTES% (M) 1 % (0-0); SEGMENTED NEUTROPHILS (M) % 84 % (39-77); SMUDGE%M 4 % (0-0); SPHEROCYTES 1+ (0-0)
[2017-09-03] MEDS: ALBUMIN HUMAN 25% 50 ML IV ×3 (09:55→18:48)
[2017-09-03] MEDS: BALSAM PERU/CASTOR OIL 60 GM TUBE TOP ×2 (10:16→21:36)
[2017-09-03] MEDS: CITRIC ACID/SODIUM CITRATE 15 ML CUP PO ×3 (10:17→21:35)
[2017-09-03] MEDS: FLUCONAZOLE 100 MG TAB PO (10:17)
[2017-09-03] MEDS: LACTULOSE 30ML CUP PO ×4 (10:17→21:00)
[2017-09-03] MEDS: NYSTATIN 15 GM OINT TOP ×2 (10:17→21:36)
[2017-09-03] MEDS: FOLIC ACID 1 MG TAB PO (10:17)
[2017-09-03] MEDS: CYANOCOBALAMIN 500 MCG TAB PO (10:18)
[2017-09-03] MEDS: LIDOCAINE 1% (MPF) 5 ML VIAL SC (11:00)
[2017-09-03] MEDS: RIFAXIMIN 550 MG TAB PO ×2 (12:14→21:36)
[2017-09-03] MEDS ORDERED: HEPARIN 1000 UNITS/ML 10 ML INJ (12:23)
[2017-09-03] MEDS: LINEZOLID 600 MG/D5W (PMX) 300 ML IVPB ×2 (14:30→23:09)
[2017-09-03] MEDS: MEROPENEM 500MG/50 ML (PMX) 50 ML IVPB ×2 (16:01→21:35)
[2017-09-03] MEDS ORDERED: PHENYLephrine 20MG IN 250 ML 250 ML (19:20)
[2017-09-03] MEDS: HEPARIN 1000 UNITS/ML 10 ML INJ CATHETER (20:34)
[2017-09-03] MEDS: NADOLOL 40 MG TAB PO ×2 (21:00→21:36)
[2017-09-03] MEDS: PHENYLephrine 40 MG in DEXTROSE 5% 496 ML IV (21:42)
[2017-09-03] MEDS: morphine 2 MG INJ IV (23:09)
[2017-09-04] MEDS: ALBUMIN HUMAN 25% 50 ML IV (01:33)
[2017-09-04] MEDS: PANTOPRAZOLE (EC) 40 MG TAB PO (05:09)
[2017-09-04 05:35] LABS: AADO2 Arterial 648.6 mmHg (7.0-24.0); Allen Test ACCEPTAB; Arterial Base Excess -10.7 mmol/L (-3.0-3); Arterial Blood Gas Oxygen Sat 41.9 mmHG (95.0-98.0); Arterial COHb 1.2 % (0.0-3.0); Arterial HCO3 15.5 mmol/L (22.0-26.0); Arterial MetHb 0.9 % (0.0-1.5); Arterial Total Hemglobin 8.7 g/dl (12.0-18.0); Arterial pCO2 35.7 mmhg (35-45); MODE MASK - NRB; Site Right Brachial
[2017-09-04 05:55] LABS: WHITE BLOOD COUNT 58.6 10^3/ul (4.8-10.8)
[2017-09-04 05:55] LABS: ABNORMAL IP MESSAGE 1; HEMATOCRIT 23.4 % (42.0-52.0); HEMOGLOBIN 8.2 g/dl (14.0-18.0); MEAN CORPUSCULAR HEMOGLOBIN 33.2 pg (29.0-33.0); MEAN CORPUSCULAR VOLUME 94.7 fl (82.0-101.0); MEAN PLATELET VOLUME 13.3 fl (7.4-10.4); NUCLEATED RED BLOOD CELLS% 0.1 /100WBC (0.0-0.0); PLATELET COUNT 207 10^3/UL (140-415); POSITIVE DIFF @See below; RED BLOOD COUNT 2.47 10^6/ul (4.70-6.10)
[2017-09-04 05:57] LABS: ADD MAN DIFF? YES
[2017-09-04 06:06] LABS: ANION GAP 25 (8-16); BLOOD UREA NITROGEN 32 mg/dl (7-20); CALCIUM 8.8 mg/dl (8.4-10.2); CARBON DIOXIDE 14 mmol/L (21-31); CHLORIDE 100 mmol/L (97-110); CREATININE 4.74 mg/dl (0.61-1.24); GLUCOSE 135 mg/dl (70-220); MAGNESIUM 1.8 mg/dl (1.7-2.5); PHOSPHORUS 7.5 mg/dl (2.5-4.9); POTASSIUM 3.9 mmol/L (3.5-5.1); SODIUM 135 mmol/L (135-144)
[2017-09-04 06:11] LABS: AMMONIA 47 umol/l (9-30)
[2017-09-04] MEDS ORDERED: ETOMIDATE 20 MG INJ (07:00)
[2017-09-04] MEDS ORDERED: VECURONIUM 10 MG VIAL (07:00)
[2017-09-04 07:49] LABS: ALANINE AMINOTRANSFERASE 21 IU/L (13-69); ALKALINE PHOSPHATASE 225 IU/L (42-121); ASPARTATE AMINO TRANSFERASE 59 IU/L (15-46); TOTAL PROTEIN 6.8 g/dl (6.1-8.1)
[2017-09-04 07:55] LABS: BILIRUBIN,INDIRECT 3.3 mg/dl (0-1.1)
[2017-09-04] MEDS: PHENYLephrine 40 MG in DEXTROSE 5% 496 ML IV (08:29)
[2017-09-04] MEDS ORDERED: PROPOFOL 100 ML IV (09:00)
[2017-09-04] MEDS ORDERED: EPINEPHrine 0.1 MG/ML SYG (09:05)
[2017-09-04] MEDS: VASOPRESSIN 60 UNIT in DEXTROSE 5% 57 ML IV (09:15)
[2017-09-04] MEDS: EPINEPHrine 4 MG in DEXTROSE 5% 246 ML IV (09:24)
[2017-09-04] MEDS ORDERED: ALBUMIN HUMAN 25% 50 ML IV (09:30)
[2017-09-04] MEDS ORDERED: NA BICARBONATE 8.4% 50 ML SYG (09:42)
[2017-09-04] MEDS ORDERED: NORepinephrine 32 MG in DEXTROSE 5% 218 ML IV (10:00)
[2017-09-04] MEDS ORDERED: PHENYLephrine 160 MG in DEXTROSE 5% 484 ML IV (10:00)
[2017-09-04] MEDS ORDERED: ATROPINE 1 MG/10 ML SYRINGE (10:09)
[2017-09-04] MEDS: FENTAnyl (DRIP) 1000 mcg/100mL 100 ML IV (10:25)
[2017-09-04] MEDS ORDERED: SODIUM BICARBONATE (IV ADD) 150 MEQ in DEXTROSE 5% 1,000 ML IV ×2 (10:30→10:33)
[2017-09-04] MEDS: SOD CHLORIDE 0.9% 1,000 ML IV (10:54)
[2017-09-04] MEDS: NA BICARBONATE 8.4% 50 ML SYG IV (10:54)
[2017-09-04 11:40] LABS: LACTIC ACID 7.5 mmol/L (0.5-2.0)
[2017-09-04 11:44] LABS: ANISOCYTOSIS 2+ (0-0); BAND NEUTROPHILS #M 5.2 10^3/ul (0.0-0.6); BAND NEUTROPHILS % (M) 9 % (0-4); GIANT THROMBO% (M) 3 % (0-0); LYMPHOCYTES #M 4.1 10^3/ul (0.8-2.9); LYMPHOCYTES % (M) 7 % (15-51); MICROCYTOSIS 1+ (0-0); MONOCYTE #M 3.5 10^3/ul (0.3-0.9); MONOCYTES % (M) 6 % (0-11); PLATELET ESTIMATE NORMAL; POIKILOCYTOSIS 3+ (0-0); PROMYELOCYTES #M 0.5 10^3/ul (0-0); PROMYELOCYTES % (M) 1 % (0-0); SEG NEUT #M 48.2 10^3/ul (1.7-7.5); SEGMENTED NEUTROPHILS (M) % 77 % (39-77)
== END 2017-09-04 11:25 | disposition expired | DRG 391 ==
LOC: PP2 08-09 14:35 → ICU 09-03 06:19 → E/R 11:41 → MS4 14:00
PROC: 0DB28ZX Excision of Middle Esophagus, Via Natural or Artificial Opening Endoscopic, Diagnostic (ICD-10-PCS; principal; 2017-08-06 15:30)
PROC: 5A1935Z Respiratory Ventilation, Less than 24 Consecutive Hours (ICD-10-PCS; 2017-08-06 15:30)
PROC: 0DB68ZX Excision of Stomach, Via Natural or Artificial Opening Endoscopic, Diagnostic (ICD-10-PCS; 2017-08-06 15:30)
PROC: 06HM33Z Insertion of Infusion Device into Right Femoral Vein, Percutaneous Approach (ICD-10-PCS; 2017-08-06 15:30)
PROC: 5A1D70Z Performance of Urinary Filtration, Intermittent, Less than 6 Hours Per Day (ICD-10-PCS; 2017-08-06 15:30)
PROC: 0BH17EZ Insertion of Endotracheal Airway into Trachea, Via Natural or Artificial Opening (ICD-10-PCS; 2017-08-06 15:30)
PROC: 30233N1 Transfusion of Nonautologous Red Blood Cells into Peripheral Vein, Percutaneous Approach (ICD-10-PCS; 2017-08-06 15:30)
PROC: 0W9G3ZZ Drainage of Peritoneal Cavity, Percutaneous Approach (ICD-10-PCS; 2017-08-06 15:30)
PROC: 02HV33Z Insertion of Infusion Device into Superior Vena Cava, Percutaneous Approach (ICD-10-PCS; 2017-08-06 15:30)
PROC: 5A1D70Z Performance of Urinary Filtration, Intermittent, Less than 6 Hours Per Day (ICD-10-PCS; 2017-08-06 15:30)
DX: K29.70 Gastritis, unspecified, without bleeding (principal); N17.0 Acute kidney failure with tubular necrosis; J96.00 Acute respiratory failure, unspecified whether with hypoxia or hypercapnia; R65.21 Severe sepsis with septic shock; G92 Toxic encephalopathy; J18.9 Pneumonia, unspecified organism; K65.2 Spontaneous bacterial peritonitis; A40.8 Other streptococcal sepsis; D68.4 Acquired coagulation factor deficiency; K92.1 Melena; B37.81 Candidal esophagitis; E87.1 Hypo-osmolality and hyponatremia; D62 Acute posthemorrhagic anemia; N39.0 Urinary tract infection, site not specified; R17 Unspecified jaundice; E87.3 Alkalosis; E87.2 Acidosis; K70.11 Alcoholic hepatitis with ascites; Z66 Do not resuscitate; Z51.5 Encounter for palliative care; F10.20 Alcohol dependence, uncomplicated; Z72.0 Tobacco use; K25.9 Gastric ulcer, unspecified as acute or chronic, without hemorrhage or perforation; I46.9 Cardiac arrest, cause unspecified; B95.4 Other streptococcus as the cause of diseases classified elsewhere; Z79.52 Long term (current) use of systemic steroids; B95.2 Enterococcus as the cause of diseases classified elsewhere; T36.8X5A Adverse effect of other systemic antibiotics, initial encounter; Y92.239 Unspecified place in hospital as the place of occurrence of the external cause; R19.7 Diarrhea, unspecified
CPT/HCPCS: 31500; 36415; 36430; 36569; 36600; 71010; 71045; 74177; 74181; 76775; 76937; 80048; 80053; 80061; 80076; 80202; 81001; 81003; 82040; 82043; 82140; 82150; 82306; 82550; 82803; 83036; 83605; 83615; 83690; 83735; 84100; 84155; 84157; 84300; 84439; 84443; 84484; 85025; 85610; 85730; 86360; 86403; 86480; 86635; 86644; 86704; 86709; 86803; 86850; 86900; 86901; 86920; 87040; 87070; 87075; 87081; 87086; 87340; 88104; 88305; 88312; 88313; 89051; 90935; 92950; 93005; 93306; 94002; 94660; 94770; 96365; 96366; 96367; 96375; 96376; 97110; 97116; 97163; 97530; 99291-25; J1940